=== PATIENT | female | born 1960 | race Caucasian/White ===

== ENCOUNTER → 2017-10-11 | Outpatient (CLI) | payer OTHER, MEDICAID | LOC: FIMAGING 11:59 | PROVIDERS: ATTEND Family Medicine | DX: Z12.31 Encounter for screening mammogram for malignant neoplasm of breast (principal) | CPT/HCPCS: G0202 ==

== ENCOUNTER → 2017-11-11 | Outpatient (CLI) | payer OTHER, MEDICAID | LOC: FIMAGING 14:11 | PROVIDERS: ATTEND Family Medicine | DX: R92.8 Other abnormal and inconclusive findings on diagnostic imaging of breast (principal) ==

== ENCOUNTER 2018-10-03 11:11 | Emergency (ER) | payer OTHER, MEDICAID ==
--- NOTE | 2018-10-03 11:13 | EDPHY ---
H & P Time Seen by Provider: 10/03/18 11:13 - Personal History Tetanus Vaccine Date: <10 years ago Constitutional: Initial Vital Signs Temperature (C) 36.8 C 10/03/18 11:13 Heart Rate 87 10/03/18 11:13 Respiratory Rate 18 10/03/18 11:13 Blood Pressure 148/111 H 10/03/18 11:13 O2 Sat (%) 92 10/03/18 11:13 O2 Delivery Mode Room Air Allergies/Adverse Reactions: No Known Allergies Allergy (Verified 04/27/12 12:06) Home Medications: Medication Instructions Recorded Ativan Unknown Amt 04/27/12 Clozaril Unknwn Amt 04/27/12 Risperidon Unknown Amt 04/27/12 Trilepal Unkown Amt 04/27/12 Medical Decision Making ED Course/Re-evaluation: CHIEF COMPLAINT: "I have a fetus in me" HISTORY OF PRESENT ILLNESS: This patient is a 57 year old female with history of schizophrenia arriving via EMS with concerns of an advanced . She states that every morning at 5: 00am, a fetus comes out of her, but that this scares her and she pushes it back in. Today, she called EMS for assistance and states "This time I'm biting the bullet and getting some help. Hopefully you can induce ." She is concerned due to abdominal distension and is unsure what the etiology of this is. She states "I want this out out out". The patient states believes she went through menopause about 5-6 years ago, and additionally states that she has been celibate for about 26 years. She has no other complaints today and denies any recent trauma or illness. No fever, chest pain, shortness of breath, vomiting, diarrhea, lightheadedness or other associated symptoms. REVIEW OF SYSTEMS: A comprehensive 10 system review of systems is otherwise negative aside from elements mentioned in the history of present illness and medical decision making. PHYSICAL EXAM: HR, BP, O2 Sat, RR. Temp noted General Appearance: Alert, well hydrated, appropriate, and non-toxic appearing. Head: Atraumatic without scalp tenderness or obvious injury Eyes: Pupils equal, round, reactive to light and accommodation, EOMI, no trauma , no injection. Ears: Clear bilaterally, no perforation, normal landmarks Nose: Atraumatic, no rhinorrhea, clear. Throat: There is no erythema or exudates, no lesions, normal tonsils, mucus membranes moist. Neck: Supple, 2+ carotid upstroke, nontender, no lymphadenopathy. Respiratory: No retractions, no distress, no wheezes, and no accessory muscle use. Lungs are clear to auscultation bilaterally. Cardiovascular: Regular rate and rhythm, no murmurs, rubs, or gallops. Bilateral carotid, radial, dorsalis pedis, and posterior tibial pulses intact. Good capillary refill all extremities. Gastrointestinal: Abdomen is soft, nontender, non-distended, no masses, no rebound, no guarding, no peritoneal signs. Musculoskeletal: Normal active ROM of all extremities, atraumatic. Neurological: Alert, appropriate, and interactive. The patient has normal DTRs and non-focal cranial nerves, motor, sensory, and cerebellar exam. Skin: No rashes, good turgor, no nodules on palpation. Past medical history: Schizophrenia Past surgical history: Noncontributory Family history: Noncontributory Social history: Single. Lives in [place]. DIFFERENTIAL DIAGNOSIS: Includes but not limited to , ectopic , uterine prolapse, other causes of abdominal distension. MEDICAL DECISION MAKING: Post-menopausal female with history of schizophrenia presents with concern for ongoing . I assured her this is very unlikely as she denies having had intercourse and admits to being post-menopausal for several years. Exam is largely unremarkable. Plan for US for further evaluation. 11:16 Performed US at bedside. No fetus visualized on scan. No evidence of other acute intraabdominal abnormalities. Patient states she knows for a fact there is a fetus, but I reassured her that there is none visualized. We discussed additional causes of her symptoms including possible uterine prolapse given her description of "pushing the fetus back in". She agrees that this may be the case. I recommended she follow up with gynecology for further evaluation of this. She is comfortable with this plan and will do so in the outpatient setting. Patient states she is alright to take a taxi home. Plan to discharge home in good condition. Departure - Departure Disposition: Home, Routine, Self-Care Clinical Impression: Psychosis Qualifiers: Psychosis type: unspecified psychosis type Qualified Code(s): F29 - Unspecified psychosis not due to a substance or known physiological condition Condition: Good Instructions: Additional Information Additional Instructions: We do not see evidence of at this time. You may have a uterine prolapse. Please follow up with CUSTOMER SERVICE COORDINATOR for further evaluation. We have referred you to our CUSTOMER SERVICE COORDINATOR provider client application support specialist. Referrals: Aimee Lacy MD [Medical Doctor] - As per Instructions Report Scribed for: Huber Miner Report Scribed by: Marisela Mckeon Date of Report: 10/03/18 Time of Report: 12:16
[2018-10-03 11:15] VITALS: BP 148/111
== END 2018-10-03 11:33 | disposition home or self-care (01) ==
LOC: EDUNIT#
DX: F29 Unspecified psychosis not due to a substance or known physiological condition (principal); F20.9 Schizophrenia, unspecified

== ENCOUNTER 2018-11-28 13:16 | Inpatient (IN) | payer OTHER, MEDICAID ==
[2018-11-28 13:53] LABS: PLATELET COUNT 185 10^3/uL (150-400)
[2018-11-28] MEDS ORDERED: NS 1,000 ML IV ONE (14:14)
--- NOTE | 2018-11-28 14:14 | EDPHY ---
H & P Stated Complaint: SOB Time Seen by Provider: 11/28/18 13:17 HPI/ROS: CHIEF COMPLAINT: Shortness of breath, altered mental status Limitations: Poor historian HISTORY OF PRESENT ILLNESS: 58-year-old female with schizophrenia presents with shortness of breath and altered mental status. Onset vomiting 2 days ago. Saw her primary care physician yesterday, prescribed antiemetics. Onset of shortness of breath yesterday, increased today. Her sister called this morning and felt the patient was confused. On the sister's arrival, the patient was lying on the floor, stating that she was short of breath. On EMS arrival, the patient was hypoxic and was placed on oxygen by nasal cannula. No abdominal pain, recent URI, cough or fever. No prior history of thromboembolism. REVIEW OF SYSTEMS: complete 10 point ROS reviewed and is negative except for the noted elements in the HPI Source: Patient, Family - Personal History Tetanus Vaccine Date: <10 years ago - Medical/Surgical History Hx Asthma: No Hx Chronic Respiratory Disease: No Hx Diabetes: No Hx Cardiac Disease: No Hx Renal Disease: No Hx Cirrhosis: No Hx Alcoholism: No Hx HIV/AIDS: No Hx Splenectomy or Spleen Trauma: No Other PMH: schizophrenia - Social History Smoking Status: Never smoked Alcohol Use: Sober Drug Use: None - Physical Exam Exam: General Appearance: Drowsy, answers some questions Eyes: Pupils equal and round, no conjunctival pallor or injection ENT, Mouth: Mucous membranes dry Neck: Normal inspection Respiratory: Bilateral rhonchi Cardiovascular: Regular rate and rhythm Gastrointestinal: Abdomen is distended, no apparent tenderness Neurological: Drowsy, moves all extremities, nonfocal exam Skin: Warm and dry, facial skin discoloration Extremities: Normal inspection, no swelling Psychiatric: Flat affect Constitutional: Initial Vital Signs Temperature (C) 36.8 C 11/28/18 13:16 Heart Rate 92 11/28/18 13:16 Respiratory Rate 16 11/28/18 13:16 Blood Pressure 105/77 11/28/18 13:16 O2 Sat (%) 85 L 11/28/18 13:16 O2 Delivery Mode Oxymask O2 (L/minute) 10 Allergies/Adverse Reactions: No Known Allergies Allergy (Verified 11/28/18 13:18) Home Medications: Medication Instructions Recorded LORazepam [Ativan (*)] 1 mg PO BID 04/27/12 risperiDONE [Risperdal 1mg (*)] 1 mg PO DAILY 04/27/12 OXcarbazepine [Trileptal 300mg (*)] 300 mg PO BID@,16 11/28/18 OXcarbazepine [Trileptal 300mg (*)] 600 mg PO HS 11/28/18 Ondansetron Odt [Zofran Odt 4 mg 4 mg PO Q8HRS PRN 11/28/18 (*)] cloZAPine [Clozaril (*)] 25 mg PO DAILY 11/28/18 cloZAPine [Clozaril (*)] 100 mg PO BID@09,16 11/28/18 cloZAPine [Clozaril (*)] 500 mg PO HS 11/28/18 risperiDONE [Risperdal 1mg (*)] 2 mg PO BID@,11/28/18 Medical Decision Making - Diagnostics EKG Interpretation: EKG interpreted by me reveals normal sinus rhythm, rate 87, poor R-wave progression. Interpretation: Abnormal EKG Imaging Results: Imaging Impressions Chest X-Ray 11/28/18 13:18 Impression: 1. Moderate hypoventilatory features with diffuse peribronchial thickening and left basilar subsegmental atelectasis versus a minimal infiltrate. 2. Nonspecific bowel gas pattern with air-fluid distention of the stomach, and air-filled loops of small and large bowel which are incompletely imaged. Abdomen X-Ray 11/28/18 14:31 Impression: Abnormal small and large bowel gas pattern with moderate constipation/obstipation, and features suggestive of a concurrent small bowel obstruction with an air-distended stomach. The patient would benefit from a nasogastric tube, and as clinically directed, CT imaging of the abdomen and pelvis could be considered for additional assessment. Extremity Venous Study 11/28/18 14:34 Impression: Negative. No deep venous thrombosis in the right or left lower extremity. Findings discussed with Emergency Department physician, Nati Gregory, on 2018, 15:55. Abdomen/Pelvis CT 11/28/18 15:20 Impression: Patchy bilateral pneumonia. Might this be related to aspiration from the fluid-filled dilated esophagus? 2. CT Abdomen and Pelvis without Contrast, 3:57 PM History: Abdominal pain, nausea and vomiting, distended stomach, high creatinine Technique: 128 slice volumetric data set helical CT obtained through the abdomen and pelvis without contrast . Images are reviewed on the computer workstation. Dose reduction techniques were utilized. Comparison: KUB earlier Findings: The stomach is massively distended with fluid. There is dilated small bowel, consistent with a small bowel obstruction. The small bowel is dilated up to 7 cm. There is a small amount of free fluid in the pelvis. There is no free air. There is fecal material throughout the nondistended colon. The distal ileum is not distended. Abdomen- The liver and spleen are normal in size and homogeneous. There is no biliary dilatation. The gallbladder, pancreas, and kidneys look normal. The adrenal glands and retroperitoneum look normal. There is no ascites or evidence for bowel obstruction. Pelvis: There is fecal material throughout the majority of the nondistended colon. Urinary bladder looks normal. There is no pelvic or inguinal adenopathy. Impression: 1. High-grade mid-distal ileal small bowel obstruction. This patient would benefit from an NG tube. Results discussed with Dr. Nati Gregory at 4:50 PM. General information for patients regarding this examination can be found at [email or web address]. If you have questions or comments about this report, please contact me at (hospital) or [phone] (cell). Imaging: Discussed imaging studies w/ at home independent call center agent Radiologist, I viewed and interpreted images myself ED Course/Re-evaluation: This patient presents with a 2 day history of shortness of breath and vomiting. On exam, she appears dehydrated and is lethargic and hypoxic. Chest x-ray is a very poor inspiratory film, but likely has a left lower lobe infiltrate. Clinical presentation suggests pneumonia, initial lactate is normal. Blood cultures were drawn and Rocephin and Zithromax IV given. The patient also has hyponatremia and acute renal failure, likely secondary to dehydration, given a 2 -3 day history of vomiting. IV normal saline 1 L given. D-dimer is elevated, CTA is contraindicated because of elevated creatinine. Bilateral lower extremity ultrasounds ordered and revealed no evidence of DVT. The hospitalist service was consulted for admission. Abdominal x-ray obtained and reveals dilated loops of small bowel. CT abdomen pelvis obtained and reveals a high- grade bowel obstruction. Dr. Sade Joseph was consulted and will see the patient. At this point, the patient was already admitted to a floor bed. I contacted Dr. Raycroft and an NGT tube has already been placed. Concern for aspiration pneumonia, given small-bowel obstruction. Will likely need to change antibiotic regimen. Differential Diagnosis: Differential diagnosis includes though it is not limited to pneumonia, pneumothorax, pulmonary embolism, aortic dissection, pericarditis, acute coronary syndrome. - Data Points Laboratory Results: Laboratory Results 11/28/18 13:20 11/28/18 13:20 11/28/18 11/28/18 11/28/18 14:00 13:20 13:20 WBC RBC Hgb Hct MCV MCH MCHC RDW Plt Count MPV Neut % (Auto) Lymph % (Auto) Imperial % (Auto) Eos % (Auto) Baso % (Auto) Nucleat RBC Rel Count Absolute Neuts (auto) Absolute Lymphs (auto) Absolute Monos (auto) Absolute Eos (auto) Absolute Basos (auto) Absolute Nucleated RBC Immature Gran % Immature Gran # D-Dimer 3.01 ug/mLFEU H ug/mLFEU (0.00-0.50) VBG Lactic Acid 1.4 mmol/L mmol/L (0.7-2.1) Sodium Potassium Chloride Carbon Dioxide Anion Gap BUN Creatinine Estimated GFR Glucose Calcium Troponin I 0.015 ng/mL ng/mL (0.000-0.034) NT-Pro-B Natriuret Pep 374 pg/mL H pg/mL (0-125) Ethyl Alcohol < 10 mg/dL mg/dL (0-10) 11/28/18 11/28/18 13:20 13:20 WBC 15.19 10^3/uL H 10^3/uL (3.80-9.50) RBC 4.59 10^6/uL 10^6/uL (4.18-5.33) Hgb 14.0 g/dL g/dL (12.6-16.3) Hct 40.4 % % (38.0-47.0) MCV 88.0 fL fL (81.5-99.8) MCH 30.5 pg pg (27.9-34.1) MCHC 34.7 g/dL g/dL (32.4-36.7) RDW 13.4 % % (11.5-15.2) Plt Count 185 10^3/uL 10^3/uL (150-400) MPV 10.6 fL fL (8.7-11.7) Neut % (Auto) 89.2 % H % (39.3-74.2) Lymph % (Auto) 4.7 % L % (15.0-45.0) Imperial % (Auto) 5.5 % % (4.5-13.0) Eos % (Auto) 0.0 % L % (0.6-7.6) Baso % (Auto) 0.1 % L % (0.3-1.7) Nucleat RBC Rel Count 0.0 % % (0.0-0.2) Absolute Neuts (auto) 13.55 10^3/uL H 10^3/uL (1.70-6.50) Absolute Lymphs (auto) 0.72 10^3/uL L 10^3/uL (1.00-3.00) Absolute Monos (auto) 0.83 10^3/uL H 10^3/uL (0.30-0.80) Absolute Eos (auto) 0.00 10^3/uL L 10^3/uL (0.03-0.40) Absolute Basos (auto) 0.02 10^3/uL 10^3/uL (0.02-0.10) Absolute Nucleated RBC 0.00 10^3/uL 10^3/uL (0-0.01) Immature Gran % 0.5 % % (0.0-1.1) Immature Gran # 0.07 10^3/uL 10^3/uL (0.00-0.10) D-Dimer VBG Lactic Acid Sodium 125 mEq/L L mEq/L (135-145) Potassium 4.5 mEq/L mEq/L (3.5-5.2) Chloride 79 mEq/L L mEq/L (97-110) Carbon Dioxide 27 mEq/l mEq/l (22-31) Anion Gap 19 mEq/L H mEq/L (6-14) BUN 73 mg/dL H mg/dL (7-23) Creatinine 4.2 mg/dL H mg/dL (0.6-1.0) Estimated GFR 11 Glucose 166 mg/dL H mg/dL (70-100) Calcium 8.8 mg/dL mg/dL (8.5-10.4) Troponin I NT-Pro-B Natriuret Pep Ethyl Alcohol Microbiology Results: MICROBIOLOGY 11/28/18 14:00 Nasal, Sinus - Swab Respiratory Panel (PCR) - Final No Organism Detected By Pcr Medications Given: Clozapine (Clozaril) 100 mg PO BID@09,16 [facility] Stop: 05/27/19 15:59 Last Admin: 11/28/18 18:08 Dose: 100 mg Clozapine (Clozaril) 400 mg PO HS MELVIN Stop: 05/27/19 20:59 Last Admin: 11/28/18 21:03 Dose: 400 mg Heparin Sodium (Porcine) (Heparin Sc Injection) 5,000 unit SC Q8 MELVIN Stop: 05/27/19 21:59 Last Admin: 11/28/18 21:04 Dose: 5,000 unit Sodium Chloride (Ns) 1,000 mls @ 125 mls/hr IV CONT [facility] Stop: 05/27/19 15:29 Last Admin: 11/28/18 16:49 Dose: 1,000 mls Ampicillin Sodium/Sulbactam (Sodium 1.5 gm/ Sodium Chloride) 50 mls @ 200 mls/ hr IV Q12H MELVIN PRN Reason: Protocol Stop: 12/28/18 19:59 Last Admin: 11/28/18 21:00 Dose: 50 mls Lorazepam (Ativan) 1 mg PO BID [facility] Stop: 05/27/19 20:59 Last Admin: 11/28/18 21:04 Dose: 1 mg Ondansetron HCl (Zofran) 4 mg IVP Q4HRS PRN PRN Reason: Nausea/Vomiting, Can't Take PO Stop: 05/27/19 16:54 Last Admin: 11/28/18 16:59 Dose: 4 mg Oxcarbazepine (Trileptal) 300 mg PO BID@0900,1600,2100 [facility] Stop: 05/27/19 20:59 Last Admin: 11/28/18 21:04 Dose: 300 mg Risperidone (Risperdal) 2 mg PO BID@16,21 [facility] Stop: 05/27/19 15:59 Last Admin: 11/28/18 21:04 Dose: 2 mg Discontinued Medications Sodium Chloride (Ns) 1,000 mls @ 0 mls/hr IV ONCE ONE; Wide Open PRN Reason: Protocol Stop: 11/28/18 14:15 Last Admin: 11/28/18 14:23 Dose: 1,000 mls Azithromycin 500 mg/ Sodium (Chloride) 255 mls @ 255 mls/hr IV EDNOW ONE PRN Reason: Protocol Stop: 11/28/18 15:32 Last Admin: 11/28/18 15:36 Dose: 255 mls Ceftriaxone Sodium/Dextrose (Rocephin 1 Gm (Premix)) 50 mls @ 100 mls/hr IV EDNOW ONE PRN Reason: Protocol Stop: 11/28/18 15:02 Last Admin: 11/28/18 14:40 Dose: 50 mls Oxcarbazepine (Trileptal) 300 mg PO BID@09,16 MELVIN Stop: 05/27/19 15:59 Last Admin: 11/28/18 18:08 Dose: 300 mg Departure - Departure Disposition: [facility] Inpatient Acute Clinical Impression: Small bowel obstruction Pneumonia Qualifiers: Pneumonia type: due to unspecified organism Laterality: bilateral Lung location : unspecified part of lung Qualified Code(s): J18.9 - Pneumonia, unspecified organism Acute renal failure Qualifiers: Acute renal failure type: unspecified Qualified Code(s): N17.9 - Acute kidney failure, unspecified Condition: Serious
[2018-11-28] MEDS ORDERED: AZITHROMYCIN IV 500 MG in NS 250 ML IV ONE (14:33)
--- NOTE | 2018-11-28 15:29 | PDGENHP ---
History and Physical - Chief Complaint confusion, n/v - History of Present Illness 58yo F with schizophrenia presents to ED with several days of nausea and vomiting who is now confused. Patient very somnolent, unable to obtain any significant history. Sister at bedside who provides details. Patient reported nausea and vomiting to sister starting Tuesday morning. She was also having chills and sweats. Symptoms continued through weekend and patient went to PCP yesterday who prescribed anti-emetics. She was not having any diarrhea. Last BM this morning. Sister reports that she did complain of some shortness of breath yesterday. Sister went to check on patient this AM and found her confused, which was unusual as her schizophrenia is typically well controlled. She has had no medication changes recently. In the ED, she was noted to have SpO2 of 85% on room air. This only mildly improved on 3L and ultimately she was increased to 6L oxymask with O2 sats>90%. She also had a Na of 125, Cr 4.2 (previously 1.0). She is being admitted to the step down unit for further evaluation and management. History Information - Allergies/Home Medication List Allergies/Adverse Reactions: No Known Allergies Allergy (Verified 11/28/18 13:18) Home Medications: LORazepam [Ativan (*)] 1 mg PO BID 04/27/12 [Last Taken Unknown] risperiDONE [Risperdal 1mg (*)] 1 mg PO DAILY 04/27/12 [Last Taken Unknown] OXcarbazepine [Trileptal 300mg (*)] 300 mg PO BID@,11/28/18 [Last Taken Unknown] OXcarbazepine [Trileptal 300mg (*)] 600 mg PO HS 11/28/18 [Last Taken Unknown] Ondansetron Odt [Zofran Odt 4 mg (*)] 4 mg PO Q8HRS PRN 11/28/18 [Last Taken Unknown] cloZAPine [Clozaril (*)] 25 mg PO DAILY 11/28/18 [Last Taken Unknown] cloZAPine [Clozaril (*)] 100 mg PO BID@,11/28/18 [Last Taken Unknown] cloZAPine [Clozaril (*)] 500 mg PO HS 11/28/18 [Last Taken Unknown] risperiDONE [Risperdal 1mg (*)] 2 mg PO BID@,21 11/28/18 [Last Taken Unknown] I have personally reviewed and updated: family history, medical history, social history, surgical history - Past Medical History Additional medical history: schizophrenia - Surgical History Reports: no pertinent surgical hx Additional surgical history: no abdominal surgeries - Family History Positive for: non-pertinent - Social History Smoking Status: Never smoked Alcohol Use: Sober Drug Use: None Additional social history: Lives alone, typically independent in ADLs. Sister ( Rody Holcomb) checks in on her routinely. Review of Systems Review of Systems: ROS: 10pt was reviewed & negative except for what was stated in HPI & below Physical Exam Physical Exam: Temp Pulse Resp BP Pulse Ox 36.8 C 74 16 112/84 H 95 11/28/18 13:16 11/28/18 14:39 11/28/18 14:41 11/28/18 14:39 11/28/18 14:41 O2 (L/minute) 10 Constitutional: no apparent distress, other (somnolent) Eyes: PERRL, anicteric sclera, EOMI Ears, Nose, Mouth, Throat: dry mucous membranes Cardiovascular: regular rate and rhythym, no murmur, rub, or gallop, No edema Respiratory: reduced air movement, rhonchi, No expiratory wheeze, No inspiratory crackles Gastrointestinal: distension, other (absent bowel sounds), No tenderness Genitourinary: no bladder fullness, no bladder tenderness Skin: other (hyperpigmented face/neck) Musculoskeletal: full muscle strength, no muscle tenderness, normal joint ROM, no joint effusions Neurologic: other (alert, answers questions appropriately but then falls asleep) Psychiatric: encephalopathic Lab Data & Imaging Review 11/28/18 13:20 11/28/18 13:20 WBC 15.19 10^3/uL (3.80-9.50) H 11/28/18 13:20 RBC 4.59 10^6/uL (4.18-5.33) 11/28/18 13:20 Hgb 14.0 g/dL (12.6-16.3) 11/28/18 13:20 Hct 40.4 % (38.0-47.0) 11/28/18 13:20 MCV 88.0 fL (81.5-99.8) 11/28/18 13:20 MCH 30.5 pg (27.9-34.1) 11/28/18 13:20 MCHC 34.7 g/dL (32.4-36.7) 11/28/18 13:20 RDW 13.4 % (11.5-15.2) 11/28/18 13:20 Plt Count 185 10^3/uL (150-400) 11/28/18 13:20 MPV 10.6 fL (8.7-11.7) 11/28/18 13:20 Neut % (Auto) 89.2 % (39.3-74.2) H 11/28/18 13:20 Lymph % (Auto) 4.7 % (15.0-45.0) L 11/28/18 13:20 Walsh % (Auto) 5.5 % (4.5-13.0) 11/28/18 13:20 Eos % (Auto) 0.0 % (0.6-7.6) L 11/28/18 13:20 Baso % (Auto) 0.1 % (0.3-1.7) L 11/28/18 13:20 Nucleat RBC Rel Count 0.0 % (0.0-0.2) 11/28/18 13:20 Absolute Neuts (auto) 13.55 10^3/uL (1.70-6.50) H 11/28/18 13:20 Absolute Lymphs (auto) 0.72 10^3/uL (1.00-3.00) L 11/28/18 13:20 Absolute Monos (auto) 0.83 10^3/uL (0.30-0.80) H 11/28/18 13:20 Absolute Eos (auto) 0.00 10^3/uL (0.03-0.40) L 11/28/18 13:20 Absolute Basos (auto) 0.02 10^3/uL (0.02-0.10) 11/28/18 13:20 Absolute Nucleated RBC 0.00 10^3/uL (0-0.01) 11/28/18 13:20 Immature Gran % 0.5 % (0.0-1.1) 11/28/18 13:20 Immature Gran # 0.07 10^3/uL (0.00-0.10) 11/28/18 13:20 D-Dimer 3.01 ug/mLFEU (0.00-0.50) H 11/28/18 13:20 VBG Lactic Acid 1.4 mmol/L (0.7-2.1) 11/28/18 14:00 Sodium 125 mEq/L (135-145) L 11/28/18 13:20 Potassium 4.5 mEq/L (3.5-5.2) 11/28/18 13:20 Chloride 79 mEq/L (97-110) L 11/28/18 13:20 Carbon Dioxide 27 mEq/l (22-31) 11/28/18 13:20 Anion Gap 19 mEq/L (6-14) H 11/28/18 13:20 BUN 73 mg/dL (7-23) H 11/28/18 13:20 Creatinine 4.2 mg/dL (0.6-1.0) H 11/28/18 13:20 Estimated GFR 11 11/28/18 13:20 Glucose 166 mg/dL (70-100) H 11/28/18 13:20 Calcium 8.8 mg/dL (8.5-10.4) 11/28/18 13:20 Troponin I 0.015 ng/mL (0.000-0.034) 11/28/18 13:20 NT-Pro-B Natriuret Pep 374 pg/mL (0-125) H 11/28/18 13:20 Ethyl Alcohol < 10 mg/dL (0-10) 11/28/18 13:20 Interpretation: CXR: low lung volumes c/w poor inspiration, no effusion, atelectasis in left lower lobe, normal heart size. AXR: abnormal gas pattern with features suggestive of small bowel obstruction EKG additional interpertation: ECG: NSR, biatrial enlargement, normal axis, q wave in V3 (? lead placement), no acute ST-T segment changes Assessment & Plan Assessment: 58yo F with schizophrenia presents to ED with several days of nausea and vomiting found to have small bowel obstruction in addition to respiratory and renal failure. Plan: 1. Acute small bowel obstruction: Non-peritoneal abdomen. Possibly precipitated by recent gastroenteritis. - NG tube, NPO, IVF - CT abd/pelvis w/out contrast - Consult surgery if not improving with conservative management 2. Acute hypoxemic respiratory failure: Unclear etiology, possibly atelectasis from abdominal distention. - s/p CTX and azithromycin in ED, will hold on further abx - ABG pending - CT chest w/out contrast to evaluate lung parenchyma 3. Acute kidney injury: Cr 4.2, previously 1.0. Suspect prerenal/hypovolemic. - Send urine studies, eval for hydronephrosis with CT - IVF, avoid nephrotoxins 4. Hyponatremia: As above, suspect hypovolemia. At risk for SIADH given psych meds but she has been on these chronically. - Checking urine lytes - Serial Na monitoring, goal no higher than 131 by tomorrow afternoon 5. Acute metabolic encephalopathy: Multifactorial from hypoxia, uremia, low Na. - Avoid centrally acting meds, correcting metabolic derangements as above 6. Nausea, vomiting, dehydration: Likely gastroenteritis. - GI PCR ordered 7. Elevated d-dimer: - Checking bilateral leg US - Unable to obtain CTA chest, consider V/Q scan 8. Schizophrenia: Rather high functioning per sister. Followed by Dr Cole Goodwin - Continue home meds once med rec complete, monitor counts on clozaril 9. Tobacco use: 40-50pyh. 10. H/o argyria: Chronic blue-munoz hyperpigmentation of neck/face. VTE ppx: SQH Code: full Diet: NPO Proxy: sister, Rody Holcomb, # in chart Dispo: Admit as inpatient to step down given severity of multiple organ dysfunction.
[2018-11-28] MEDS ORDERED: OXcarbazepine 300 MG TAB PO SCH ×2 (16:00→21:00)
[2018-11-28] MEDS ORDERED: ONDANSETRON 4 MG/2 ML VIAL ONE (16:40)
[2018-11-28] MEDS: NS 1,000 ML IV SCH (16:49)
--- NOTE | 2018-11-28 16:50 | PDMN ---
Medical Necessity Medical necessity: [facility] [place] M210 Intestinal Obstruction, 2 days: 58 yo w/ several days n/v presents with new onset confusion today. Assessment reveals SBO in addition to resp and renal failure with sats 85% on ra and creat 4.2. NPO, NGT , IVF, IV antibx, O2, surgical consult. Admit to IP status, will require>48hrs for treatment. Hx schizophrenia well controlled on medications.
[2018-11-28] MEDS: ONDANSETRON 4 MG/2 ML VIAL IVP PRN (16:59)
[2018-11-28] MEDS ORDERED: AMPICILLIN/SULBACTAM 3 GM in NS 100 ML IV SCH (18:00)
[2018-11-28] MEDS: cloZAPine 100 MG TAB PO SCH ×2 (18:08→21:03)
[2018-11-28] MEDS: risperiDONE 2 MG TAB PO SCH ×2 (18:08→21:04)
[2018-11-28] MEDS: AMPICILLIN/SULBACTAM 1.5 GM in NS 50 ML IV SCH (21:00)
--- NOTE | 2018-11-28 21:00 | CPEKG ---
Test Reason : OPEN Blood Pressure : / mmHG Vent. Rate : 087 BPM Atrial Rate : 087 BPM P-R Int : 167 ms QRS Dur : 104 ms QT Int : 396 ms P-R-T Axes : 059 038 053 degrees QTc Int : 477 ms Sinus rhythm Biatrial enlargement Consider anterior infarct Minimal ST elevation, inferior leads Confirmed by Nati Calloway ([id number]) on 11/28/2018 9:00:06 PM Referred By: NATI CALLOWAY Confirmed By:Nati Calloway
[2018-11-28] MEDS: HEPARIN 5,000 UNIT/0.5 ML INJ SC SCH (21:04)
[2018-11-28] MEDS: LORazepam 1 MG TAB PO SCH (21:04)
[2018-11-28] MEDS: OXcarbazepine 300 MG TAB PO SCH (21:04)
[2018-11-29] MEDS: NS 1,000 ML IV SCH ×3 (01:01→20:37)
--- NOTE | 2018-11-29 04:02 | GCON ---
[f rep st] CONSULTATION DATE OF CONSULTATION: 11/28/2018 CHIEF COMPLAINT: Small bowel obstruction. HISTORY OF PRESENT ILLNESS: The patient is a 58-year-old woman with a history of schizophrenia who h as had several days of nausea and vomiting. She started having emesis on Tuesday. She is continuin g to pass flatus. She had a BM within the past 24 hours. She also had shortness of breath. Her sis ter went to check on her and found her confused. She had a low oxygen saturation on room air. She h ad a CT scan performed of her chest and abdomen. The chest CT showed patchy bilateral pneumonia. Sh pato also has a high-grade mid distal ileal small bowel obstruction. She has never had abdominal surger y before. PAST MEDICAL HISTORY: Schizophrenia. She has not been hospitalized since 2005. She is very depende nt on her meds and notes when she is getting psychotic. PAST SURGICAL HISTORY: No abdominal surgeries. SOCIAL HISTORY: She does not use tobacco. She is independent in her ADLs. REVIEW OF SYSTEMS: Full 10-point review of systems is difficult to obtain fully. She does endorse p assing flatus multiple times per day, and her last bowel movement was within 24 hours. PHYSICAL EXAMINATION: VITAL SIGNS: 36.8, 78, 115/88, 93% on 10 L OxyMask. GENERAL: Pleasant, sitt ing in bed, sometimes closes eyes throughout exam. Sister at bedside and very attentive. HEENT: Bl ue faces. Pupils equal and round. LUNGS: Shallow breathing without increased effort. CARDIAC: Re gular rate. ABDOMEN: Bowel sounds are present, although hypoactive. She is distended but soft. Th ere is approximately 1 L of yellow fluid in her NG. No obvious scars. MUSCULOSKELETAL: Normal nail s. PSYCH: Calm. NEURO: Grossly intact. DATA: I personally reviewed the results of her CT scan, and she has bilateral lower lobe infiltrates . On her abdomen, she has an extremely fluid-filled stomach as well as throughout her small bowel. Her distal bowel is decompressed. I do not see edema or mesenteric swirling. Her white count is 15. 19, and her neutrophils are 89.2. D-dimer 3.01. Chemistry is notable for a sodium of 1.25, and her creatinine is 4.2. Her laboratory work from January of 2018, showed a normal creatinine and a normal s odium. Her white count at that time was also normal. IMPRESSION AND PLAN: The patient is a 58-year-old woman with known schizophrenia, who is admitted wi th acute renal insufficiency, hyponatremia, bilateral lower lobe pneumonia, and small bowel obstructi on. She does not have any peritoneal signs. She is currently undergoing decompression with the naso gastric tube. Due to her renal function and sodium level, I think it would be prudent to watch her o vernight with nasogastric decompression, especially since she is passing flatus and had a recent maryse l movement. I am hoping that the small bowel obstruction will resolve. There is a chance that she c ould need operative intervention. 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 I did discuss with her and her sister that although we would be giving her by-mouth medications, we are unsure of how much will be absorbed systemically. I recommend accu rate ins and outs due to her creatinine. I will continue to follow. /[id number]/MODL
[2018-11-29] MEDS: HEPARIN 5,000 UNIT/0.5 ML INJ SC SCH ×3 (05:43→21:33)
[2018-11-29 06:37] LABS: PLATELET COUNT 149 10^3/uL (150-400)
--- NOTE | 2018-11-29 08:35 | SOAPPROG ---
SOAP Progress Note Assessment/Plan: Assessment: 58 y with schizophrenia admitted for aspiration pneumonia and sbo over 2 L out of NG tube. Passing flatus No history of surgery, no hernias. Hope this will resolve with decompression Unsure if related to her medications for schizophrenia WBC much improved today, Cr improving Continue NG decompression Popsicle 1 per 12 hours for comfort hard candy or cough drops for comfort Will follow S: Sore throat O: Sitting in bed Pleasant and well nourished BS present (hypoactive). Much softer today. Not tender Bilious fluid in NG Plan: 11/29/18 08:33 58 Objective: Vital Signs Temp Pulse Resp BP Pulse Ox 36.8 C 85 16 105/66 97 11/29/18 08:00 11/29/18 08:00 11/29/18 08:00 11/29/18 08:00 11/29/18 08:00 Laboratory Results 11/29/18 06:06 11/29/18 06:06 11/28/18 11/29/18 11/30/18 05:59 05:59 05:59 Intake Total 2080 Output Total 3050 Balance -970 ICD10 Worksheet Patient Problems: Problems Problem Status Onset Acute renal failure Acute Pneumonia Acute Small bowel obstruction Acute Drug overdose - suicide Active Schizoaffective disorder Active
[2018-11-29] MEDS: AMPICILLIN/SULBACTAM 1.5 GM in NS 50 ML IV SCH ×2 (09:21→20:53)
[2018-11-29] MEDS: LORazepam 1 MG TAB PO SCH (09:27)
[2018-11-29] MEDS: cloZAPine 25 MG TAB PO SCH (09:27)
[2018-11-29] MEDS: risperiDONE 1 MG TAB PO SCH (09:28)
[2018-11-29] MEDS: OXcarbazepine 300 MG TAB PO SCH ×3 (09:28→20:17)
[2018-11-29] MEDS: cloZAPine 100 MG TAB PO SCH ×3 (09:28→20:18)
--- NOTE | 2018-11-29 09:35 | ASMTCASEMG ---
Living Arrangements What is your living Answers: Alone arrangement? Who do you live with? Type Of Residence What kind of residence do Answers: Apartment you live in? Type of Residence Facility Name Notes: Patient has hx of schizophrenia, lives alone, fairly independent. Patient's sister Rody checks on her regularly and will serve as proxy for the patient. Paperwork in the front of the chart. Discharge Plan Comments Coordination Status Comments Notes: Patient is a 58yo single female with hx of schizophrenia who presents to the ED with several days of nausea and vomiting. Patient has been admitted for a small bowel obstruction, hypoxemic respiratory failure, acute kidney injury, hyponatremia, acute metabolic encephalopathy, nausea, vomiting, dehydration. Patient sees Dr. Goodwin for her schizophrenia and is high functioning. OT/PT have been ordered for the patient. D/C plan TBD.CM will follow. Date Signed: 11/29/2018 09:35 AM Electronically Signed By:Julia Tiwari LCSW
--- NOTE | 2018-11-29 10:21 | HOSPPROG ---
Hospitalist Progress Note Assessment/Plan: DIAGNOSES: * Small-bowel obstruction uncertain etiology, high-grade requiring NG decompression * Pneumonia, community-acquired, question if possibly related to aspiration due to her obstruction; patchy bilateral diffuse infiltrates, alveolar * Acute renal failure likely dehydration from above, improving * Acute on chronic hypoxemic respiratory failure with tobacco use and COPD * Schizophrenia with significant ongoing psychosis/delusions - unclear to me what her baseline is but doubt she has been getting medication absorbed at home with her bowel obstruction and may be an ongoing problem here. She is currently calm and working well with staff * Hyponatremia, hypovolemic * Argyria PLANS: * Continue NG suction and IV hydration * Allow small volume oral fluid intake for now * Encourage ambulation and barger * DVT prophylaxis * Continue current treatment for pneumonia and COPD * Follow her schizophrenia very closely, will review her medicines may need to consider IV medications Seen by me on hospitals rounds and multidisciplinary rounds today Reviewed in detail with Dr. 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 I reviewed chest CT scan images which showed scattered bilateral patchy alveolar infiltrates I reviewed abdominal CT images which show high-grade distal small-bowel obstruction - Objective: Vital Signs Temp Pulse Resp BP Pulse Ox 36.8 C 85 16 105/66 97 11/29/18 08:00 11/29/18 08:00 11/29/18 08:00 11/29/18 08:00 11/29/18 08:00 Laboratory Results 11/29/18 06:06 11/29/18 06:06 11/28/18 11/29/18 11/30/18 06:59 06:59 06:59 Intake Total 2080 Output Total 3050 600 Balance -970 -600 - Time Spent With Patient Time Spent with Patient: greater than 35 minutes Time Spent with Patient: Greater than 35 minutes spent on this patients care, greater than 50% of time spent counseling, educating, and coordinating care regarding the above mentioned plan. ICD10 Worksheet Patient Problems: Problems Problem Status Onset Acute renal failure Acute Pneumonia Acute Small bowel obstruction Acute Drug overdose - suicide Active Schizoaffective disorder Active
--- NOTE | 2018-11-29 12:38 | GCON ---
[f rep st] CONSULTATION [facility] CONSULTATION. REFERRING PHYSICIAN: John Huynh MD I was asked to see patient by Dr. John Huynh. REASON FOR ADMISSION: Small-bowel obstruction. HISTORY: The patient is a very pleasant 58-year-old white female with extensive past medical history including schizophrenia and tobacco abuse. She was brought in to the emergency room after complaint s of abdominal pain. This was associated with nausea and vomiting. Upon presentation, she was found to have small-bowel obstruction. Surgery was subsequently consulted but deferred surgery at this [facility]. She was somewhat hypoxemic at the time of presentation. She was subsequently admitted to the in tensive care unit. Currently, she is resting comfortably, sitting up in a chair. She states that he r abdominal pain is somewhat improved. She states she is quite hungry as well as thirsty. There is no chest pain, pleuritic-type chest pain or angina equivalent. Her breathlessness has improved with supplemental oxygen. PAST MEDICAL HISTORY: Significant for schizophrenia and possible chronic obstructive pulmonary disea se. PAST SURGICAL HISTORY: None. ALLERGIES: No known allergies to medications. SOCIAL HISTORY: She is a lifelong smoker since age 12. She denies any alcohol use for several years . 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 However, her sister is attentive and has g ood family support. REVIEW OF SYSTEMS: 10-point review of systems performed and negative except for what is listed in th e HPI. PHYSICAL EXAM: VITAL SIGNS: Blood pressure 105/66, pulse 85, respirations 16, temperature 36.8, oxy gen saturation 97% on 6 L. GENERAL: She is a thin, somewhat malnourished 58-year-old white female w ho is resting comfortably on supplemental oxygen. HEENT: She has significant hyperpigmented face an d neck. Throat shows no erythema or tonsillar hypertrophy. NECK: Supple. There is no cervical jairo nopathy. HEART: Regular rate and rhythm without murmurs, rubs, gallops. LUNGS: Show prolongation expiratory phase but there is no wheeze. ABDOMEN: Distended, soft, tender. Bowel sounds are dimini shed. EXTREMITIES: No clubbing, cyanosis, or edema. LABORATORIES: White count 5.8, hemoglobin 12, hematocrit 36, platelet count is 149. Sodium 130, pot assium 3.8, chloride 93, CO2 is 29, BUN is 76, creatinine 3.0, glucose is 84. IMPRESSION: 1. Small-bowel obstruction. 2. Hypoxemia, likely a combination of abdominal contents pushing up against the lungs. However, giv en her lifelong smoking history must take into consideration the likelihood of emphysema. 3. Acute renal failure appears to be prerenal. 4. Schizophrenia. RECOMMENDATIONS: 1. Continue adequate pain control. 2. Continue NG tube suction. 3. DVT and PE prophylaxis. 4. Stress ulcer prophylaxis. 5. Continue supplemental oxygen, wean as tolerated. 6. Agree with frequent nebulized treatment with both albuterol and Atrovent. 7. Would recommend pulmonary function testing as an outpatient. Thank you very much for allowing me to participate in the care of this interesting patient. Will fol low along with you. /[id number]/MODL
[2018-11-29] MEDS: LORazepam 2 MG/ML INJ IVP SCH ×3 (13:23→23:14)
[2018-11-29] MEDS: IPRATROPIUM/ALBUTEROL 3 ML DEYVIAL IH SCH ×3 (13:38→21:13)
[2018-11-29] MEDS: risperiDONE 2 MG TAB PO SCH ×2 (16:16→20:17)
[2018-11-30] MEDS: IPRATROPIUM/ALBUTEROL 3 ML DEYVIAL IH SCH ×4 (05:16→20:01)
[2018-11-30] MEDS: LORazepam 2 MG/ML INJ IVP SCH ×3 (06:13→16:38)
[2018-11-30] MEDS: HEPARIN 5,000 UNIT/0.5 ML INJ SC SCH ×3 (06:13→21:14)
[2018-11-30] MEDS: NS 1,000 ML IV SCH (07:41)
[2018-11-30] MEDS: cloZAPine 100 MG TAB PO SCH ×3 (08:23→21:09)
[2018-11-30] MEDS: OXcarbazepine 300 MG TAB PO SCH ×3 (08:23→21:09)
[2018-11-30] MEDS: cloZAPine 25 MG TAB PO SCH (08:23)
[2018-11-30] MEDS: AMPICILLIN/SULBACTAM 1.5 GM in NS 50 ML IV SCH ×2 (08:23→20:39)
[2018-11-30] MEDS: risperiDONE 1 MG TAB PO SCH (08:23)
--- NOTE | 2018-11-30 09:33 | HOSPPROG ---
Hospitalist Progress Note Assessment/Plan: DIAGNOSES: * Small-bowel obstruction uncertain etiology, high-grade requiring NG decompression * Pneumonia, community-acquired, question if possibly related to aspiration due to her obstruction; patchy bilateral diffuse infiltrates, alveolar * Acute renal failure likely dehydration from above, improving * Acute on chronic hypoxemic respiratory failure with tobacco use and COPD * Schizophrenia with significant ongoing psychosis/delusions - unclear to me what her baseline is but doubt she has been getting medication absorbed at home with her bowel obstruction and may be an ongoing problem here. She is currently calm and working well with staff * Hyponatremia, hypovolemic * Argyria PLANS: * Continue NG suction and IV hydration * Allow small volume oral fluid intake for now * Encourage ambulation and barger * DVT prophylaxis * Continue current treatment for pneumonia and COPD * Follow her schizophrenia very closely, will review her medicines may need to consider IV medications * Some scheduled IV Ativan at this time for prevention of seizures as this is medicine that she takes twice daily at home in addition to taking try level at home, neither which she would absorb reliably taken orally at this time * Continue physical occupational therapy * Will review with Dr. 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: Sinus Exam: alert, calm, very attentive and conversant, know she is in hospital and has some understanding of why; however she is very delusional, no tremor skin warm dry Obvious abnormal pigmentation of face due to argyria resps mildly labored lungs coarse BSs heart regular abd soft distended and tender, some bowel sounds present limbs warm, no edema iv site ok Lab data: Microbiology data: Blood cultures with no growth today Respiratory pathogen panel normal I have ordered abdominal x-rays for today but they are not yet done, will review when they are available - Objective: Vital Signs Temp Pulse Resp BP Pulse Ox 36.8 C 82 17 106/71 98 11/30/18 00:00 11/30/18 07:35 11/30/18 07:35 11/30/18 07:35 11/30/18 07:35 Laboratory Results 11/29/18 06:06 11/29/18 06:06 11/29/18 11/30/18 12/01/18 06:59 06:59 06:59 Intake Total 1330 9518 Output Total 1355 4445 500 [facility]970 -1699 -500 - Time Spent With Patient Time Spent with Patient: greater than 35 minutes Time Spent with Patient: Greater than 35 minutes spent on this patients care, greater than 50% of time spent counseling, educating, and coordinating care regarding the above mentioned plan. ICD10 Worksheet Patient Problems: Problems Problem Status Onset Acute renal failure Acute Pneumonia Acute Small bowel obstruction Acute Drug overdose - suicide Active Schizoaffective disorder Active
--- NOTE | 2018-11-30 09:41 | HOSPPROG ---
Hospitalist Progress Note Assessment/Plan: DIAGNOSES: * Small-bowel obstruction uncertain etiology, high-grade requiring NG decompression * Pneumonia, community-acquired, question if possibly related to aspiration due to her obstruction; patchy bilateral diffuse infiltrates, alveolar * Acute renal failure likely dehydration from above, improving * Acute on chronic hypoxemic respiratory failure with tobacco use and COPD * Schizophrenia with significant ongoing psychosis/delusions - unclear to me what her baseline is but doubt she has been getting medication absorbed at home with her bowel obstruction and may be an ongoing problem here. She is currently calm and working well with staff * Hyponatremia, hypovolemic * Argyria PLANS: * I have ordered abdominal x-rays to be done today those are still pending * Continue NG suction and IV hydration * Allow small volume oral fluid intake for now * Encourage ambulation and barger * DVT prophylaxis * Continue current treatment for pneumonia and COPD * Follow her schizophrenia very closely, will review her medicines may need to consider IV medications * Some scheduled IV Ativan at this time for prevention of seizures as this is medicine that she takes twice daily at home in addition to taking try level at home, neither which she would absorb reliably taken orally at this time * Continue physical occupational therapy * Will review with Dr. 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: Sinus Exam: alert, calm, very attentive and conversant, know she is in hospital and has some understanding of why; however she is very delusional, no tremor skin warm dry Obvious abnormal pigmentation of face due to argyria resps mildly labored lungs coarse BSs heart regular abd soft distended and tender, some bowel sounds present limbs warm, no edema iv site ok Lab data: Microbiology data: Blood cultures with no growth today Respiratory pathogen panel normal I have ordered abdominal x-rays for today but they are not yet done, will review when they are available - Objective: Vital Signs Temp Pulse Resp BP Pulse Ox 36.8 C 82 17 106/71 98 11/30/18 00:00 11/30/18 07:35 11/30/18 07:35 11/30/18 07:35 11/30/18 07:35 Laboratory Results 11/29/18 06:06 11/29/18 06:06 11/29/18 11/30/18 12/01/18 06:59 06:59 06:59 Intake Total 7859 2758 Output Total 0428 4445 500 Balance -970 -1699 -500 - Time Spent With Patient Time Spent with Patient: greater than 35 minutes Time Spent with Patient: Greater than 35 minutes spent on this patients care, greater than 50% of time spent counseling, educating, and coordinating care regarding the above mentioned plan. ICD10 Worksheet Patient Problems: Problems Problem Status Onset Acute renal failure Acute Pneumonia Acute Small bowel obstruction Acute Drug overdose - suicide Active Schizoaffective disorder Active
--- NOTE | 2018-11-30 09:59 | PDINTPN ---
[employer] Progress Note Assessment/Plan: Assessment/plan: * Small-bowel obstruction * Schizophrenia * Probable chronic obstructive pulmonary disease * History of tobacco abuse * Pain-good control * VT prophylaxis * Stress ulcer prophylaxis * PT/OT * Disposition-okay for transfer to floor 11/30/18 09:59 Subjective: Sitting up in chair. Resting comfortably. Pain well controlled. Objective: Vital Signs Temp Pulse Resp BP Pulse Ox 36.8 C 82 17 106/71 98 11/30/18 00:00 11/30/18 07:35 11/30/18 07:35 11/30/18 07:35 11/30/18 07:35 Laboratory Results 11/29/18 06:06 11/29/18 06:06 11/29/18 11/30/18 12/01/18 05:59 05:59 05:59 Intake Total 2977 2740 Output Total 6687 4445 500 Balance -970 -1699 -500 - Time Spent With Patient Time Spent With Patient: 35 min of time spent with patient, 1/2 involved with coordination of care or counseling. Physical Exam - Physical Exam General Appearance: alert, no apparent distress EENT: PERRL/EOMI Neck: non-tender, supple Respiratory: prolonged expiration, No respiratory distress, No wheezing Cardiac/Chest: normal peripheral pulses, regular rate, rhythm Abdomen: normal bowel sounds, soft, distended, No non-tender Pelvic Exam: deferred Rectal: deferred Skin: normal color, warm/dry Extremities: non-tender Neuro/Psych: alert ICD10 Worksheet Patient Problems: Problems Problem Status Onset Acute renal failure Acute Pneumonia Acute Small bowel obstruction Acute Drug overdose - suicide Active Schizoaffective disorder Active
[2018-11-30] MEDS: CEPACOL LOZENGE PO PRN ×2 (13:44→16:38)
[2018-11-30] MEDS ORDERED: guaiFENesin 200 MG/10 ML UDL PO PRN (14:21)
[2018-11-30] MEDS: risperiDONE 2 MG TAB PO SCH ×2 (16:38→21:09)
[2018-11-30] MEDS ORDERED: PROTOCOL POTASSIUM 1 DOSE MISC PRN (17:25)
--- NOTE | 2018-11-30 17:28 | HOSPPROG ---
Hospitalist Progress Note Assessment/Plan: DIAGNOSES: * Small-bowel obstruction uncertain etiology, high-grade requiring NG decompression * Pneumonia, community-acquired, question if possibly related to aspiration due to her obstruction; patchy bilateral diffuse infiltrates, alveolar * Acute renal failure likely dehydration from above, improving * Acute on chronic hypoxemic respiratory failure with tobacco use and COPD * Schizophrenia with significant ongoing psychosis/delusions - unclear to me what her baseline is but doubt she has been getting medication absorbed at home with her bowel obstruction and may be an ongoing problem here. She is currently calm and working well with staff * Hyponatremia, hypovolemic * Argyria PLANS: * I have ordered abdominal x-rays to be done today those are still pending * Continue NG suction and IV hydration * Allow small volume oral fluid intake for now * Encourage ambulation and barger * DVT prophylaxis * Continue current treatment for pneumonia and COPD * Follow her schizophrenia very closely, will review her medicines may need to consider IV medications * Some scheduled IV Ativan at this time for prevention of seizures as this is medicine that she takes twice daily at home in addition to taking try level at home, neither which she would absorb reliably taken orally at this time * Continue physical occupational therapy * Will review with Dr. Joseph * Contrast her to med surge today Seen by me on hospitals rounds and multidisciplinary rounds today ADDENDUM TO THIS NOTE FROM EARLIER TODAY: renal function continues to improve notably her Na is now 147 and K is low Her abd xray shows persistant diffuse gaseous bowel distension, ? 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: Sinus Exam: alert, calm, very attentive and conversant, know she is in hospital and has some understanding of why; however she is very delusional, no tremor skin warm dry Obvious abnormal pigmentation of face due to argyria resps mildly labored lungs coarse BSs heart regular abd soft distended and tender, some bowel sounds present limbs warm, no edema iv site ok Lab data: Microbiology data: Blood cultures with no growth today Respiratory pathogen panel normal I have ordered abdominal x-rays for today but they are not yet done, will review when they are available - Objective: Vital Signs Temp Pulse Resp BP Pulse Ox 36.8 C 93 13 134/79 H 97 11/30/18 16:00 11/30/18 16:00 11/30/18 16:00 11/30/18 16:00 11/30/18 16:00 Laboratory Results 11/29/18 06:06 11/30/18 10:40 11/29/18 11/30/18 12/01/18 06:59 06:59 06:59 Intake Total 2080 2746 1466 Output Total 3050 4445 1050 Balance -970 -1690 416 ICD10 Worksheet Patient Problems: Problems Problem Status Onset Acute renal failure Acute Pneumonia Acute Small bowel obstruction Acute Drug overdose - suicide Active Schizoaffective disorder Active
[2018-11-30] MEDS: POTASSIUM Cl (KCl) 10 MEQ in D5W 1/2 NS 1,000 ML IV SCH (18:23)
--- NOTE | 2018-11-30 19:53 | SOAPPROG ---
SOAP Progress Note Assessment/Plan: Assessment: 58 y with schizophrenia admitted for community aquired vs aspiration pneumonia and sbo Passing flatus. No BM. Continued NG output No history of surgery, no hernias. Hope this will resolve with decompression Unsure if related to her medications for schizophrenia Cr improving Continue NG decompression Popsicle 1 per 12 hours for comfort hard candy or cough drops for comfort Will follow Hoping will not need surgery S: Glad a friend came to visit O: Sitting in chair Pleasant and well nourished BS present (hypoactive). Even softer today. Not tender Dark Bilious fluid in NG Plan: 11/29/18 08:33 58 11/30/18 19:52 Objective: Vital Signs Temp Pulse Resp BP Pulse Ox 37.1 C 84 17 121/75 H 97 11/30/18 19:32 11/30/18 19:32 11/30/18 19:32 11/30/18 19:32 11/30/18 19:32 Laboratory Results 11/29/18 06:06 11/30/18 18:32 11/29/18 11/30/18 12/01/18 05:59 05:59 05:59 Intake Total 2080 2746 1466 Output Total 3050 4445 1050 Balance -970 -1699 416 ICD10 Worksheet Patient Problems: Problems Problem Status Onset Acute renal failure Acute Pneumonia Acute Small bowel obstruction Acute Drug overdose - suicide Active Schizoaffective disorder Active
[2018-12-01] MEDS ORDERED: POTASSIUM CL 10 MEQ TAB PO ONE ×3 (00:27→21:59)
[2018-12-01] MEDS: LORazepam 2 MG/ML INJ IVP SCH ×4 (00:41→17:15)
[2018-12-01] MEDS: HEPARIN 5,000 UNIT/0.5 ML INJ SC SCH ×3 (04:58→21:39)
[2018-12-01] MEDS: IPRATROPIUM/ALBUTEROL 3 ML DEYVIAL IH SCH ×4 (05:17→22:16)
[2018-12-01] MEDS: POTASSIUM Cl (KCl) 10 MEQ in D5W 1/2 NS 1,000 ML IV SCH (05:53)
--- NOTE | 2018-12-01 08:39 | SOAPPROG ---
SOAP Progress Note Assessment/Plan: Assessment/Plan: 58 yo with schizophrenia admitted for community aquired vs aspiration pneumonia and sbo Passing flatus. No BM. Continued NG - clamp trial today. No history of surgery, no hernias. Hope this will resolve with decompression Unsure if related to her medications for schizophrenia Repeat Abd XR Dispo: S: Complaining of worsening pain and nausea O: Laying in bed, comfortable, NAD Pleasant and well nourished +BS, soft, nondistended, nontender. Dark Bilious fluid in NG 12/01/18 08:40 Objective: Vital Signs Temp Pulse Resp BP Pulse Ox 36.8 C 86 16 121/61 H 98 12/01/18 07:34 12/01/18 07:34 12/01/18 07:34 12/01/18 07:34 12/01/18 07:34 Laboratory Results 11/29/18 06:06 12/01/18 05:07 11/30/18 12/01/18 12/02/18 05:59 05:59 05:59 Intake Total 2746 1466 Output Total 4445 1800 100 Balance -1699 -334 -100 ICD10 Worksheet Patient Problems: Problems Problem Status Onset Acute renal failure Acute Pneumonia Acute Small bowel obstruction Acute Drug overdose - suicide Active Schizoaffective disorder Active
[2018-12-01] MEDS: AMPICILLIN/SULBACTAM 1.5 GM in NS 50 ML IV SCH ×2 (10:02→17:23)
[2018-12-01] MEDS: risperiDONE 1 MG TAB PO SCH (10:02)
[2018-12-01] MEDS: OXcarbazepine 300 MG TAB PO SCH ×3 (10:03→21:40)
[2018-12-01] MEDS: cloZAPine 100 MG TAB PO SCH ×3 (10:03→21:40)
[2018-12-01] MEDS: cloZAPine 25 MG TAB PO SCH (10:03)
[2018-12-01] MEDS: CEPACOL LOZENGE PO PRN (12:25)
--- NOTE | 2018-12-01 12:30 | SOAPPROG ---
SOAP Progress Note Assessment/Plan: Assessment/plan: * Small-bowel obstruction * Schizophrenia * Probable chronic obstructive pulmonary disease-still complains of cough -will add Robitussin DM * History of tobacco abuse * Pain-good control * VT prophylaxis * Stress ulcer prophylaxis * PT/OT Subjective: Complains of cough. Breathlessness stable. Objective: Vital Signs Temp Pulse Resp BP Pulse Ox 36.8 C 89 14 121/61 H 95 12/01/18 07:34 12/01/18 11:01 12/01/18 11:01 12/01/18 07:34 12/01/18 11:01 Laboratory Results 11/29/18 06:06 12/01/18 05:07 11/30/18 12/01/18 12/02/18 05:59 05:59 05:59 Intake Total 2746 1466 220 Output Total 4445 1800 100 Balance -6600 -980 120 - Time Spent With Patient Time Spent With Patient: 25 min of time spent with patient, over 1/2 involved with coordination of care or counseling. Case discussed with nursing Physical Exam - Physical Exam General Appearance: alert, no apparent distress EENT: PERRL/EOMI Neck: non-tender, supple Respiratory: prolonged expiration, other (Coughing), No respiratory distress, No wheezing Cardiac/Chest: normal peripheral pulses, regular rate, rhythm Peripheral Pulses: 2+: carotid (R), carotid (L), femoral (R), femoral (L), dorsalis-pedis (R), dorsalis-pedis (L) Abdomen: normal bowel sounds, non-tender, soft Pelvic Exam: deferred Rectal: deferred Skin: normal color, warm/dry Extremities: non-tender Neuro/Psych: alert, normal mood/affect ICD10 Worksheet Patient Problems: Problems Problem Status Onset Acute renal failure Acute Pneumonia Acute Small bowel obstruction Acute Drug overdose - suicide Active Schizoaffective disorder Active
[2018-12-01] MEDS: GUAIFENESIN/DM 10 ML UDCUP PO PRN ×2 (12:56→17:16)
--- NOTE | 2018-12-01 15:22 | HOSPPROG ---
Hospitalist Progress Note Assessment/Plan: DIAGNOSES: * Small-bowel obstruction uncertain etiology, high-grade requiring NG decompression * Pneumonia, community-acquired, question if possibly related to aspiration due to her obstruction; patchy bilateral diffuse infiltrates, alveolar * Acute renal failure likely dehydration from above, improving * Acute on chronic hypoxemic respiratory failure with tobacco use and COPD * Hyponatremia, hypovolemic, now hypernatremic; no signs of neurologic compromise * Schizophrenia with significant ongoing psychosis/delusions - unclear to me what her baseline is but doubt she has been getting medication absorbed at home with her bowel obstruction and may be an ongoing problem here. She is currently calm and working well with staff * Argyria PLANS: * continue to follow on clear liquid diet; advance if does well; if does not do well consider small bowel follow thru study tomorrow * Encourage ambulation and barger * will start D5 for her hypernatremia * DVT prophylaxis * Continue current treatment for pneumonia and COPD * Follow her schizophrenia very closely, as not sure how she is absorbing her multiple meds * Some scheduled IV Ativan at this time for prevention of seizures as this is medicine that she takes twice daily at home in addition to taking trileptal at home, both of which may be poorly absorbed in current setting * Continue physical occupational therapy SUBJECTIVE: fairly agitated/angry about being in hospital some flatus but no stool per her report, hard to get clear answer from her regarding level of abdominal pain not sob but states is coughing more OBJECTIVE Vitals reviewed: Overall stable vitals without fever Automation Machine Operator, my review: Sinus Exam: alert, oriented, anxious, aggravated about being in hosp skin warm dry Obvious abnormal pigmentation of face due to argyria resps mildly labored lungs slightlyl coarse BSs heart regular abd soft distended, less tender, some bowel sounds present high pitched limbs warm, no edema iv site ok Lab data: Hypernatremia is worse today, though BUN and creat continue to improve Microbiology data: Blood cultures with no growth today Respiratory pathogen panel normal - Objective: Vital Signs Temp Pulse Resp BP Pulse Ox 36.8 C 89 14 121/61 H 95 12/01/18 07:34 12/01/18 11:01 12/01/18 11:01 12/01/18 07:34 12/01/18 11:01 Laboratory Results 11/29/18 06:06 12/01/18 05:07 11/30/18 12/01/18 12/02/18 06:59 06:59 06:59 Intake Total 2746 1466 340 Output Total 4445 1900 100 Balance -1699 -434 240 ICD10 Worksheet Patient Problems: Problems Problem Status Onset Acute renal failure Acute Pneumonia Acute Small bowel obstruction Acute Drug overdose - suicide Active Schizoaffective disorder Active
[2018-12-01] MEDS ORDERED: D5W 1,000 ML IV SCH (15:30)
[2018-12-01] MEDS: risperiDONE 2 MG TAB PO SCH ×2 (15:38→21:44)
--- NOTE | 2018-12-01 17:02 | ASMTCMCOM ---
CM Note CM Note Notes: Reviewed chart, pt has schizophrenia but lives independently and manages well. PT/OT recommend SNF vs Home care. CM left message for sister Rody who is proxy. DC Plan: TBD Date Signed: 12/01/2018 05:01 PM Electronically Signed By:Jane Faye RN
[2018-12-02] MEDS: AMPICILLIN/SULBACTAM 1.5 GM in NS 50 ML IV SCH ×4 (01:07→18:15)
[2018-12-02] MEDS: LORazepam 2 MG/ML INJ IVP SCH ×2 (01:07→05:31)
[2018-12-02] MEDS: HEPARIN 5,000 UNIT/0.5 ML INJ SC SCH ×3 (05:31→21:04)
[2018-12-02] MEDS: IPRATROPIUM/ALBUTEROL 3 ML DEYVIAL IH SCH ×4 (07:07→21:00)
[2018-12-02] MEDS: cloZAPine 100 MG TAB PO SCH ×3 (09:45→21:05)
[2018-12-02] MEDS: cloZAPine 25 MG TAB PO SCH (09:45)
[2018-12-02] MEDS: risperiDONE 1 MG TAB PO SCH (09:45)
[2018-12-02] MEDS: OXcarbazepine 300 MG TAB PO SCH ×3 (09:45→21:05)
[2018-12-02] MEDS: ACETAMINOPHEN 325 MG TAB PO PRN (10:38)
[2018-12-02] MEDS: GUAIFENESIN/DM 10 ML UDCUP PO PRN (10:40)
[2018-12-02] MEDS ORDERED: POTASSIUM CL 10 MEQ TAB PO ONE ×2 (11:08→19:52)
--- NOTE | 2018-12-02 12:58 | SOAPPROG ---
SOAP Progress Note Assessment/Plan: Assessment/plan: * Small-bowel obstruction * Schizophrenia * Probable chronic obstructive pulmonary disease-cough improved -continue current nebs as well as Robitussin DM * History of tobacco abuse * Pain-good control * VT prophylaxis * Stress ulcer prophylaxis * PT/OT Subjective: Resting comfortably. No current complaints. Objective: Vital Signs Temp Pulse Resp BP Pulse Ox 37.1 C 87 24 H 132/87 H 94 12/02/18 07:41 12/02/18 11:31 12/02/18 11:31 12/02/18 07:41 12/02/18 11:31 Laboratory Results 11/29/18 06:06 12/02/18 05:14 12/01/18 12/02/18 12/03/18 05:59 05:59 05:59 Intake Total 1466 2353 Output Total 1800 200 Balance -334 2153 - Time Spent With Patient Time Spent With Patient: 25 min of time spent with patient, over 1/2 involved with coordination of care or counseling. Case discussed with nursing Physical Exam - Physical Exam General Appearance: alert EENT: PERRL/EOMI Neck: non-tender, supple Respiratory: prolonged expiration, No respiratory distress, No wheezing Cardiac/Chest: normal peripheral pulses, regular rate, rhythm Peripheral Pulses: 2+: carotid (R), carotid (L), femoral (R), femoral (L), dorsalis-pedis (R), dorsalis-pedis (L) Abdomen: soft, distended (Mild), No normal bowel sounds Pelvic Exam: deferred Rectal: deferred Skin: normal color, warm/dry Extremities: normal range of motion, non-tender, normal inspection, normal capillary refill Neuro/Psych: no motor/sensory deficits, alert, normal mood/affect, oriented x 3 ICD10 Worksheet Patient Problems: Problems Problem Status Onset Acute renal failure Acute Pneumonia Acute Small bowel obstruction Acute Drug overdose - suicide Active Schizoaffective disorder Active
[2018-12-02] MEDS: ONDANSETRON 4 MG/2 ML VIAL IVP PRN ×2 (13:21→17:03)
--- NOTE | 2018-12-02 13:21 | SOAPPROG ---
SOSHAIL[facility] Progress Note Assessment/Plan: Assessment: 58yo F c multiple medical issues, s SBO of unknown etiology - no nausea and she states that she is passing flatus. KUB reviewed and there is both small and large bowel dilatation - patient is very hard to get a read on as to what her baseline is and what is worse. Her nurse had her yesterday and thinks her abdomen is more firm today which I agree with - SBFT today - if fails will need ex-lap, etiology very uncertain as no masses, hernias or previous abdominal surgeries Plan: 12/02/18 13:19 Subjective: passing some flatus, maybe a little better Objective: Vital Signs Temp Pulse Resp BP Pulse Ox 37.1 C 87 24 H 132/87 H 94 12/02/18 07:41 12/02/18 11:31 12/02/18 11:31 12/02/18 07:41 12/02/18 11:31 Laboratory Results 11/29/18 06:06 12/02/18 05:14 12/01/18 12/02/18 12/03/18 05:59 05:59 05:59 Intake Total 1466 2353 Output Total 1800 200 Balance -334 2153 ICD10 Worksheet Patient Problems: Problems Problem Status Onset Acute renal failure Acute Pneumonia Acute Small bowel obstruction Acute Drug overdose - suicide Active Schizoaffective disorder Active
[2018-12-02] MEDS: risperiDONE 2 MG TAB PO SCH ×2 (17:02→21:05)
--- NOTE | 2018-12-02 17:02 | ASMTCMCOM ---
CM Note CM Note Notes: Spoke with pt's sister as pt was sleeping. Sister prefers discharge to [facility] as it is near her house. Pt agreeable. Referral sent. CM to follow. d/c plan: [facility] pending acceptance. Date Signed: 12/02/2018 05:01 PM Electronically Signed By:Barbara Mark
--- NOTE | 2018-12-02 17:17 | HOSPPROG ---
Hospitalist Progress Note Assessment/Plan: * SBO -tolerating clears but abdomen still very distended -per surgery - SBFT pending * Aspiration pneumonia -IV Unasyn * Schizophrenia -clozaril * Argyria * Hypernatremia - improved * Acute respiratory failure due to PNA -previously on 10L - now improved * Acute renal failure - improved * Metabolic encephalopathy -improved Subjective: tolerating clears, passing gas, no BM Objective: Vital Signs Temp Pulse Resp BP Pulse Ox 37.1 C 87 16 134/82 H 94 12/02/18 15:10 12/02/18 15:10 12/02/18 15:10 12/02/18 15:10 12/02/18 15:10 Laboratory Results 11/29/18 06:06 12/02/18 05:14 12/01/18 12/02/18 12/03/18 05:59 05:59 05:59 Intake Total 1466 2353 Output Total 1800 200 300 Balance -334 2153 -300 CT scan reviewed - high grade SBO axr viewed, my personal interpretation is -persistent SBO - Physical Exam Constitutional: no apparent distress, appears nourished, not in pain Cardiovascular: regular rate and rhythym, no murmur, rub, or gallop Respiratory: no respiratory distress, no rales or rhonchi, clear to auscultation Gastrointestinal: soft, non-tender abdomen, distension, No tenderness, No guarding, No rebound Skin: no rashes or abrasions, no fluctuance, no induration Neurologic: AAOx3, sensation intact bilaterally Psychiatric: interacting appropriately, not anxious, not encephalopathic, thought process linear ICD10 Worksheet Patient Problems: Problems Problem Status Onset Schizoaffective disorder Active Drug overdose - suicide Active Pneumonia Acute Small bowel obstruction Acute Acute renal failure Acute
[2018-12-02] MEDS: LORazepam 1 MG TAB PO SCH (21:05)
[2018-12-03] MEDS: AMPICILLIN/SULBACTAM 1.5 GM in NS 50 ML IV SCH ×2 (00:20→05:31)
[2018-12-03] MEDS: IPRATROPIUM/ALBUTEROL 3 ML DEYVIAL IH SCH (05:06)
[2018-12-03] MEDS: HEPARIN 5,000 UNIT/0.5 ML INJ SC SCH (05:34)
[2018-12-03] MEDS: ACETAMINOPHEN 325 MG TAB PO PRN (08:45)
[2018-12-03] MEDS: ONDANSETRON 4 MG/2 ML VIAL IVP PRN (08:45)
[2018-12-03] MEDS: risperiDONE 1 MG TAB PO SCH (08:46)
[2018-12-03] MEDS: cloZAPine 100 MG TAB PO SCH ×3 (08:46→21:00)
[2018-12-03] MEDS: cloZAPine 25 MG TAB PO SCH (08:46)
[2018-12-03] MEDS: OXcarbazepine 300 MG TAB PO SCH ×3 (08:46→21:00)
--- NOTE | 2018-12-03 09:17 | SOAPPROG ---
SOAP Progress Note Assessment/Plan: Assessment: 58yo F c multiple medical issues, s SBO of unknown etiology - SBFT: contrast into colon at 4hrs, slow but no obstruction seen which is good - she has good bowel sounds today, her abdominal distention per her report is normal - clears this AM. ADAT. Having loose BMs, the GG is working Plan: 12/02/18 13:19 12/03/18 09:16 Subjective: feeling better, having BMs Objective: Vital Signs Temp Pulse Resp BP Pulse Ox 36.7 C 88 18 133/85 H 90 L 12/03/18 08:00 12/03/18 08:00 12/03/18 05:06 12/03/18 08:00 12/03/18 08:00 Laboratory Results 11/29/18 06:06 12/03/18 05:34 12/02/18 12/03/18 12/04/18 05:59 05:59 05:59 Intake Total 2353 1200 Output Total 200 300 700 Balance 2153 900 -700 ICD10 Worksheet Patient Problems: Problems Problem Status Onset Acute renal failure Acute Pneumonia Acute Small bowel obstruction Acute Drug overdose - suicide Active Schizoaffective disorder Active
[2018-12-03] MEDS: GUAIFENESIN/DM 10 ML UDCUP PO PRN (09:40)
[2018-12-03] MEDS ORDERED: LORazepam 1 MG TAB PO PRN (09:58)
[2018-12-03] MEDS: LORazepam 1 MG TAB PO SCH (10:53)
[2018-12-03] MEDS: POLYETHYLENE GLYCOL 3350 17 GM PKT PO SCH ×2 (10:55→21:00)
[2018-12-03] MEDS ORDERED: POTASSIUM CL 10 MEQ TAB PO ONE (11:14)
[2018-12-03] MEDS: risperiDONE 2 MG TAB PO SCH ×2 (15:53→21:01)
[2018-12-03] MEDS: CEPACOL LOZENGE PO PRN (15:53)
--- NOTE | 2018-12-03 16:03 | HOSPPROG ---
Hospitalist Progress Note Assessment/Plan: * Ileus - suspect chronically sluggish, dilated bowels -now stooling, advance diet -needs maintenance bowel regimen - Miralax * Aspiration pneumonia -change to PO Augmentin * Schizophrenia -clozaril * Argyria * Hypernatremia - improved * Acute respiratory failure due to PNA -previously on 10L - now improved * Acute renal failure - improved * Metabolic encephalopathy -improved Subjective: Lots of stool Objective: Vital Signs Temp Pulse Resp BP Pulse Ox 36.7 C 88 18 133/85 H 90 L 12/03/18 08:00 12/03/18 08:00 12/03/18 05:06 12/03/18 08:00 12/03/18 08:00 Laboratory Results 11/29/18 06:06 12/03/18 05:34 12/02/18 12/03/18 12/04/18 05:59 05:59 05:59 Intake Total 2353 1200 Output Total 200 300 700 Balance 2153 900 -700 case d/w Dr. Ryan regarding ileus and slow GI function SBFT - no obstruction, dilated SB, 4 hours for contrast to cecum - Physical Exam Constitutional: no apparent distress, appears nourished, not in pain Cardiovascular: regular rate and rhythym, no murmur, rub, or gallop Respiratory: no respiratory distress, no rales or rhonchi, clear to auscultation Gastrointestinal: normoactive bowel sounds, distension, No tenderness, No ascites, No guarding, No rebound Skin: no rashes or abrasions, no fluctuance, no induration Neurologic: AAOx3, sensation intact bilaterally Psychiatric: interacting appropriately, not anxious, not encephalopathic, thought process linear ICD10 Worksheet Patient Problems: Problems Problem Status Onset Schizoaffective disorder Active Drug overdose - suicide Active Pneumonia Acute Small bowel obstruction Acute Acute renal failure Acute
[2018-12-03] MEDS: FAMOTIDINE 20 MG/NACL 50 ML IV SCH (18:46)
[2018-12-03] MEDS ORDERED: methylPREDNISolone SOD SUCC 125 MG/2 ML VIAL IVP ONE (18:50)
[2018-12-03] MEDS ORDERED: DEXAMETHASONE 4 MG/ML VIAL IVP ONE (19:37)
[2018-12-03] MEDS ORDERED: DEXAMETHASONE 4 MG/ML VIAL ONE (19:45)
--- NOTE | 2018-12-03 20:40 | SOAPPROG ---
SOAP Progress Note Assessment/Plan: Assessment: Pt with submandibular and neck swelling. Endoscopic evaluation revealed normal appearing epiglottis. Epiglottis was pink normal in size, slight omega shape, not swollen. True vocal cords visualized with symmetric mvmt. No asymmetry to the pharynx seen. Would recommend scheduled steroids and abx to cover gram negative and anaerobes. Pt with poor dental hygiene. Plan: Will see pt tomorrow to eval changes to submandibular swelling 12/03/18 20:33 12/03/18 20:48 12/03/18 20:48 Subjective: Pt reports that she hadn't eaten for 5 days. Then in hospital she ate larkburger and started to get swelling of her neck. No difficulty breathing. No pain. No difficulty speaking. No trismus. Able to tollerate PO. PMHx of schizophrenia and skin pigmentation disorder. Objective: Vital Signs Temp Pulse Resp BP Pulse Ox 36.7 C 90 18 136/91 H 97 12/03/18 20:06 12/03/18 20:06 12/03/18 20:06 12/03/18 20:06 12/03/18 20:06 Laboratory Results 11/29/18 06:06 12/03/18 18:26 12/02/18 12/03/18 12/04/18 05:59 05:59 05:59 Intake Total 2353 1200 450 Output Total 954 171 1390 Balance 2153 900 -2350 Pt in NAD, speaking in full sentences. Pronounced submandibular swelling. Submandibular glands were large to palpation, approx 3cm in size. Non tender. No trismus, good tongue mobility. Mucosa under tongue normal appearing and non tender to palpation. No induration under tongue. No dyspnea, afebrile. Endoscope revealed normal appearing epiglottis, pink in color. No pooling of secretions. True vocal cords were symmetric in mvmt. Enlarged arytenoids, but no erythema. Pharynx was slightly narrowed overall. No other masses visualized. - Time Spent With Patient Time Spent With Patient: 25 - Pending Discharge Pending Discharge Within 24 Hours: No ICD10 Worksheet Patient Problems: Problems Problem Status Onset Acute renal failure Acute Pneumonia Acute Small bowel obstruction Acute Drug overdose - suicide Active Schizoaffective disorder Active
[2018-12-03] MEDS ORDERED: IOHEXOL 300 mgI/ML (OMNIPAQUE) 150 ML BTL IV ONE (20:41)
[2018-12-03] MEDS ORDERED: AMOXICILLIN/CLAVULANATE POT 875/125 MG TAB PO SCH (21:00)
[2018-12-03] MEDS: PSYLLIUM METAMUCIL 1 PKT PO SCH (21:00)
[2018-12-03] MEDS: POTASSIUM Cl (KCl) 100 ML IV SCH ×2 (22:33→23:46)
--- NOTE | 2018-12-03 22:42 | HOSPPROG ---
Hospitalist Progress Note Assessment/Plan: called to assess patient by nursing staff due to concern for new acute lower neck and jaw swelling. upon entering room noticed patients lower jaw/neck with substantial swelling. patient maintaining air way, did not appear distressed. On examination she did have enlarged submandibular lymph nodes but no swollen tongue, and no stridor on examination. Concern for possible allergic reaction, vs ludwigs vs tonsillar abscess vs other. -called ent to evaluate -benadryl 50 IV now -pepcid 20 IV -decadron 10mg now -albuterol -lateral neck film----> neck film showing concern for epiglotitis and possible abscess. I called back ENT and asked them to come see patient. ENT PA came and evaluated patient and performed laryngoscope and said cords and epiglotitis looks normal. I ordered CT neck/soft tissue with contrast that also with concerning findings. ENT PA recommends continuing abx, cont decadron, and they will re eval in am. I will transfer to SDU for closer monitoring, and start zosyn in case of abscess in neck/tonsils. Objective: Vital Signs Temp Pulse Resp BP Pulse Ox 36.7 C 77 18 136/91 H 97 12/03/18 20:06 12/03/18 22:36 12/03/18 22:36 12/03/18 20:06 12/03/18 22:36 Laboratory Results 11/29/18 06:06 12/03/18 18:26 12/02/18 12/03/18 12/04/18 05:59 05:59 05:59 Intake Total 2353 1200 450 Output Total 924 279 4655 Balance 2153 900 -2350 ICD10 Worksheet Patient Problems: Problems Problem Status Onset Acute renal failure Acute Pneumonia Acute Small bowel obstruction Acute Drug overdose - suicide Active Schizoaffective disorder Active
[2018-12-04] MEDS: PIPERACILLIN/TAZO 3.375 GM/DEX 50 ML IV SCH ×3 (00:52→13:32)
[2018-12-04] MEDS: DEXAMETHASONE 4 MG/ML VIAL IVP SCH ×2 (00:54→08:23)
[2018-12-04 05:22] LABS: PLATELET COUNT 173 10^3/uL (150-400)
[2018-12-04] MEDS: FAMOTIDINE 20 MG/NACL 50 ML IV SCH (08:22)
[2018-12-04] MEDS: ENOXAPARIN 40 MG/0.4 ML SYR SC SCH (08:22)
[2018-12-04] MEDS: risperiDONE 1 MG TAB PO SCH ×2 (08:23→13:28)
[2018-12-04] MEDS: POLYETHYLENE GLYCOL 3350 17 GM PKT PO SCH ×3 (08:23→20:57)
[2018-12-04] MEDS: OXcarbazepine 300 MG TAB PO SCH ×4 (08:23→21:11)
[2018-12-04] MEDS: PSYLLIUM METAMUCIL 1 PKT PO SCH ×3 (08:23→20:57)
[2018-12-04] MEDS: cloZAPine 100 MG TAB PO SCH ×3 (08:23→20:56)
[2018-12-04] MEDS: cloZAPine 25 MG TAB PO SCH ×2 (08:23→14:04)
[2018-12-04] MEDS: predniSONE 20 MG TAB PO SCH (13:28)
--- NOTE | 2018-12-04 16:24 | HOSPPROG ---
Hospitalist Progress Note Assessment/Plan: * Ileus - suspect chronically sluggish, dilated bowels -now stooling, advanced diet -needs maintenance bowel regimen - Miralax * Allergic reaction with neck swelling -no airway compromise per ENT -unclear what she reacted to - no new meds -change to PO prednisone * Aspiration pneumonia -PO Augmentin -never got PO Augmentin yesterday prior to allergic rx * Schizophrenia -clozaril * Argyria * Hypernatremia - improved * Acute respiratory failure due to PNA -previously on 10L - now improved * Acute renal failure - improved * Metabolic encephalopathy -improved Subjective: Much better, no further throat symptoms Objective: Vital Signs Temp Pulse Resp BP Pulse Ox 36.6 C 72 14 166/82 H 97 12/04/18 16:00 12/04/18 16:00 12/04/18 16:00 12/04/18 16:00 12/04/18 16:00 Laboratory Results 12/04/18 05:12 12/04/18 05:12 12/03/18 12/04/18 12/05/18 05:59 05:59 05:59 Intake Total 1200 450 Output Total 300 2800 550 Balance 900 -2350 -550 Neck xray viewed, my personal interpretation is - not overly concerning upper lobe infiltrates neck CT - soft tissue swelling of airway - Physical Exam Constitutional: no apparent distress, appears nourished, not in pain Cardiovascular: regular rate and rhythym, no murmur, rub, or gallop Respiratory: no respiratory distress, no rales or rhonchi, clear to auscultation Gastrointestinal: normoactive bowel sounds, soft, non-tender abdomen, no palpable masses Skin: no rashes or abrasions, no fluctuance, no induration Neurologic: AAOx3, sensation intact bilaterally Psychiatric: interacting appropriately, not anxious, not encephalopathic, thought process linear ICD10 Worksheet Patient Problems: Problems Problem Status Onset Schizoaffective disorder Active Drug overdose - suicide Active Pneumonia Acute Small bowel obstruction Acute Acute renal failure Acute
[2018-12-04] MEDS: risperiDONE 2 MG TAB PO SCH ×2 (17:03→21:11)
[2018-12-04] MEDS: AMOXICILLIN/CLAVULANATE POT 875/125 MG TAB PO SCH (20:56)
[2018-12-05] MEDS: risperiDONE 1 MG TAB PO SCH (08:41)
[2018-12-05] MEDS: predniSONE 20 MG TAB PO SCH (08:41)
[2018-12-05] MEDS: AMOXICILLIN/CLAVULANATE POT 875/125 MG TAB PO SCH (08:41)
[2018-12-05] MEDS: cloZAPine 100 MG TAB PO SCH (08:41)
[2018-12-05] MEDS: ENOXAPARIN 40 MG/0.4 ML SYR SC SCH ×2 (08:43→08:44)
[2018-12-05] MEDS: cloZAPine 25 MG TAB PO SCH (09:02)
[2018-12-05] MEDS: OXcarbazepine 300 MG TAB PO SCH (09:02)
[2018-12-05] MEDS: POLYETHYLENE GLYCOL 3350 17 GM PKT PO SCH (09:03)
[2018-12-05] MEDS: PSYLLIUM METAMUCIL 1 PKT PO SCH (09:04)
--- NOTE | 2018-12-05 10:17 | SOAPPROG ---
SOAP Progress Note Assessment/Plan: Assessment: PT eating without difficulty and her voice is clear. No tenderness or worrisome findings on physical exam. Plan: We will sign off for now. Please contact us if her symptoms change or worsen. Thank you 12/05/18 11:12 Subjective: This exam was on Tuesday. I typed this on tuesday12/05/18. I do not know why the date is wrong on the note generated by this system. I am not an IT expert. Pt watching TV and eating. She says she feels fine. Objective: Vital Signs Temp Pulse Resp BP Pulse Ox 37.1 C 89 20 140/83 H 94 12/05/18 08:22 12/05/18 08:22 12/05/18 08:22 12/05/18 08:22 12/05/18 08:22 Laboratory Results 12/04/18 05:12 12/05/18 05:00 12/04/18 12/05/18 12/06/18 05:59 05:59 05:59 Intake Total 450 1500 Output Total 2800 550 Balance -2350 950 Neck exam shows nontender soft edema of the submental soft tissues. No adenopathy. OC/OP no trismus, tongue and floor of mouth are normal. ICD10 Worksheet Patient Problems: Problems Problem Status Onset Acute renal failure Acute Pneumonia Acute Small bowel obstruction Acute Drug overdose - suicide Active Schizoaffective disorder Active
--- NOTE | 2018-12-05 10:40 | PDIAF ---
- Diagnosis Diagnosis: Ileus, chronic bowel dilation and sluggishness Code Status: Full Code - Medication Management Discharge Medications: electronically signed and located in the Home Medication List. - Orders Isolation Type: None Diet Recommendation: no restrictions on diet Additional Instructions: Stop prednisone after 2 more days Titrate miralax and metamucil for 1 good BM per day, she MUST have daily BM - Follow Up Care Current Providers and Referrals: Patient,NotPresent [Unknown] - As per Instructions
[2018-12-05 10:53] VITALS: BP 125/76
--- NOTE | 2018-12-05 11:24 | SOAPPROG ---
SOAP Progress Note Assessment/Plan: Assessment: PT eating without difficulty and her voice is clear. No tenderness or worrisome findings on physical exam. PT doing well as of 12/04/18. Plan: We will sign off for now. Please contact us if her symptoms change or worsen. Thank you 12/05/18 11:12 12/05/18 11:23 Subjective: PT says she feels ok. Watching tv and eating Objective: Vital Signs Temp Pulse Resp BP Pulse Ox 36.8 C 92 16 125/76 H 96 12/05/18 10:51 12/05/18 10:51 12/05/18 10:51 12/05/18 10:51 12/05/18 10:51 Laboratory Results 12/04/18 05:12 12/05/18 05:00 12/04/18 12/05/18 12/06/18 05:59 05:59 05:59 Intake Total 450 1500 Output Total 2800 550 Balance -2350 950 PT examined yesterdya. Cant get this system to work sorry. PT feels fine Eating and talking normally neck has nontender soft edema of submental region. No adenopathy OC/OP are normal ICD10 Worksheet Patient Problems: Problems Problem Status Onset Acute renal failure Acute Pneumonia Acute Small bowel obstruction Acute Drug overdose - suicide Active Schizoaffective disorder Active
--- NOTE | 2018-12-05 14:50 | ASMTLACE ---
ISMAEL Length of stay for Answers: 7-13 days current admission Acuity / Level of Answers: Yes Care: Did the patient have an inpatient admission? Comorbidities - select Answers: Other Notes: ileus, chronic bowel all that apply dilation # of Emergency department Answers: 1-2 visits in the last 6 months Social determinants Answers: Mental health diagnosis (anxiety, depression, pers onality disorders, etc.) Score: 13 Date Signed: 12/05/2018 02:49 PM Electronically Signed By:Julia Tiwari LCSW
--- NOTE | 2018-12-05 14:55 | ASMTDCNOTE ---
Case Management Discharge Discharge Order Complete? Answers: Yes Patient to Obtain Answers: Other Notes: [facility] Medications Transportation Arranged Answers: Other Notes: [facility] Transport will Pick (Date 12/05/2018 12:00 AM & Time) Faxed Final Orders Answers: Yes Notes: [facility] Agency/Facility Transfer Answers: Yes Notes: [facility] Report Printed & Faxed to Receiving Agency Family Notified Answers: Yes Notes: sisterRody Discharge Comments Notes: Patient is discharging to [facility] today. Discharge summaries were Allscripted to [facility]. Transport was set up by Erika at [facility] with a diamond picker time of 4:00 PM. ([phone]) Report was called by patient's nurse, Avi. No further needs. Date Signed: 12/05/2018 02:55 PM Electronically Signed By:Julia Tiwari LCSW
--- NOTE | 2018-12-05 14:58 | ASDISCHSUM ---
Discharge Information Plan Status:SNF Medically Cleared to Leave:12/04/2018 Discharge Date:12/04/2018 CM D/C Disposition:[facility] ADT D/C Disposition:Senior Care Facility Projected Discharge Date:12/05/2018 11:00 AM Transportation at D/C:Wheelchair Van Discharge Delay Reason: Follow-Up Date:12/05/2018 11:00 AM Discharge Slot:2 - 12:01 pm - 18:00 pm Final Diagnosis:Ileus, chronic bowel dilation Placement Information Referral Type:*Retirement/SNF Referral ID:[id number] Provider Name:[facility] Address 1:[address] Address 2: City:[place] Selection Factors: State:[place] Patient Contact Information Contact Name:MARIBETH Relationship:Sister Address: Work Phone: [facility]:[place] Alternate Phone: [facility]/Zip Code:[place] [address] Email: Financial Information Financial Class:Medicare Primary Plan Desc:MEDICARE INPATIENT Primary Plan Number:[id number] Secondary Plan Desc:[place] Secondary Plan Number:[id number] Assessment Information LACE LACE Length of stay for Answers: 7-13 days current admission Acuity / Level of Answers: Yes Care: Did the patient have an inpatient admission? Comorbidities - select Answers: Other Notes: ileus, chronic bowel all that apply dilation # of Emergency department Answers: 1-2 visits in the last 6 months Social determinants Answers: Mental health diagnosis (anxiety, depression, pers onality disorders, etc.) Score: 13 Date Signed: 12/05/2018 02:49 PM Electronically Signed By:Julia Tiwari LCSW [facility] CM Assessment Living Arrangements What is your living Answers: Alone arrangement? Who do you live with? Type Of Residence What kind of residence do Answers: Apartment you live in? Type of Residence Facility Name Notes: Patient has hx of schizophrenia, lives alone, fairly independent. Patient's sister Rody checks on her regularly and will serve as proxy for the patient. Paperwork in the front of the chart. Discharge Plan Comments Coordination Status Comments Notes: Patient is a 58yo single female with hx of schizophrenia who presents to the ED with several days of nausea and vomiting. Patient has been admitted for a small bowel obstruction, hypoxemic respiratory failure, acute kidney injury, hyponatremia, acute metabolic encephalopathy, nausea, vomiting, dehydration. Patient sees Dr. Goodwin for her schizophrenia and is high functioning. OT/PT have been ordered for the patient. D/C plan TBD.CM will follow. Date Signed: 11/29/2018 09:35 AM Electronically Signed By:Julia Tiwari LCSW [facility] CM Progress Note CM Note CM Note Notes: Reviewed chart, pt has schizophrenia but lives independently and manages well. PT/OT recommend SNF vs Home care. CM left message for sister Rody who is proxy. DC Plan: TBD Date Signed: 12/01/2018 05:01 PM Electronically Signed By:Jane Faye RN [facility] CM Progress Note CM Note CM Note Notes: Spoke with pt's sister as pt was sleeping. Sister prefers discharge to [facility] as it is near her house. Pt agreeable. Referral sent. CM to follow. d/c plan: [facility] pending acceptance. Date Signed: 12/02/2018 05:01 PM Electronically Signed By:Barbara Mark Case Management Discharge Plan Note Case Management Discharge Discharge Order Complete? Answers: Yes Patient to Obtain Answers: Other Notes: [facility] Medications Transportation Arranged Answers: Other Notes: [facility] Transport will Pick (Date 12/05/2018 12:00 AM & Time) Faxed Final Orders Answers: Yes Notes: [facility] Agency/Facility Transfer Answers: Yes Notes: [facility] Report Printed & Faxed to Receiving Agency Family Notified Answers: Yes Notes: Rody velazquez Discharge Comments Notes: Patient is discharging to [facility] today. Discharge summaries were Allscripted to [facility]. Transport was set up by Erika at [facility] with a hand picker time of 4:00 PM. ([phone]) Report was called by patient's nurse, Avi. No further needs. Date Signed: 12/05/2018 02:55 PM Electronically Signed By:Julia Tiwari LCSW Intervention Information Intervention Type:*Incorrect Registration Date of Service:11/28/2018 04:43 PM Patient Type:Observation Staff Member:Anaid Ha Hours: Discipline: Severity: Comment: Intervention Type:*IM-Signed Date of Service:12/05/2018 01:31 PM Patient Type:Inpatient Staff Member:Pepper Goldstein Hours: Discipline: Severity: Comment:
--- NOTE | 2018-12-05 18:37 | GDS ---
[f rep st] DISCHARGE SUMMARY DISCHARGE DIAGNOSES: 1. Ileus. 2. Chronically dilated, sluggish bowels perhaps due to long-term antipsychotic use. 3. Anaphylactic allergic reaction. 4. Aspiration pneumonia. 5. Acute respiratory failure. 6. Schizophrenia. 7. Argyria. 8. Hypo and hypernatremia. 9. Acute renal failure. 10. Metabolic encephalopathy. HISTORY: Shamar is a 58-year-old female, well controlled schizophrenic, who presented with severe i leus versus small bowel obstruction, as well as an aspiration pneumonia, causing acute respiratory fa ilure requiring up to 10 L of oxygen. General Surgery saw her in consultation. For a period of time , we were unable to tell whether or not she had a partial small bowel obstruction versus an ileus. E ventually, a small bowel follow-through was obtained which showed that there is no obstruction, but i t took 4 hours for the contrast to reach her cecum. Her bowels are chronically dilated. We suspect this may be due to her long-term antipsychotic use. She previously used daily Metamucil, but for bran e reason had stopped this, and would sometimes get up to 10 days without a bowel movement. She was e ducated at length regarding the need for constant bowel protocol and ensuring she has a daily bowel m ovement. I discharged her on scheduled MiraLAX, and she can also add back in Metamucil to ensure funmilayo t she has 1 good bowel movement per day. She was able to tolerate a regular diet at discharge. She was able to wean off oxygen, and did complete a full course of antibiotics during her hospitalization , and no further antibiotics were needed at hospital discharge. She was critically ill on presentation and also had acute renal failure, metabolic encephalopathy, as well as electrolyte disturbances in the way of fluctuating sodiums, all of this is resolved at [facility]ch [facility]. Just prior to discharge, when she was eating one of her first meals, her sister went and got her a La rkburger, and shortly after starting to eat the Larkburger, she developed a severe anaphylactic react ion, requiring transfer to ICU. She was treated per usual protocol with steroids, Pepcid, and Benadry l. ENT saw her emergently and did a laryngoscopy, and there was no evidence of any airway compromise or epiglottitis. There were absolutely no new medications given around this time. So I do not thin k this was a drug reaction. I wonder if she reacted to something in the food, although she has no kn own food allergies. She will discharge on a short course of prednisone. Her sister plans to never f eed a Larkburger ever again. She is debilitated after this chronic illness and will go to [facility] for rehabilitation. She usual ly lives independently, but does require walking up to the 3rd floor to get into her apartment as wel l as a daily walk of 1 mile to do her ADLs, as I do not believe she drives. She will discharge to [facility] for rehabilitation until she returns to baseline independence. Her sister is an title attorney and her advocate, and seems to do a good job of keeping her on track. DISCHARGE MEDICATIONS: Please see computer record for full detailed list. NEW MEDICATIONS: 1. MiraLAX 17 g p.o. twice daily. 2. Prednisone 40 mg p.o. daily for 2 more days. 3. Metamucil 1 packet twice daily as needed. ADDITIONAL DISCHARGE INSTRUCTIONS: 1. [facility] for [facility]. 2. Titrate MiraLAX and Metamucil to 1 good bowel movement per day. Greater than 30 minutes' time was spent arranging this discharge. Patient is seen and examined by me on the day of discharge. /[id number]/[id number]
== END 2018-12-05 16:30 | DRG 388 ==
LOC: EDUNIT# → OBSVTOIN 15:22 → F2N 16:24 → F3E 11-30 17:43 → F2N 12-03 20:05 → F3E 12-04 17:26
PROVIDERS: ADMIT Internal Medicine; ATTEND Internal Medicine
DX: K56.7 Ileus, unspecified (principal); J69.0 Pneumonitis due to inhalation of food and vomit; J96.00 Acute respiratory failure, unspecified whether with hypoxia or hypercapnia; G93.41 Metabolic encephalopathy; E87.0 Hyperosmolality and hypernatremia; N17.9 Acute kidney failure, unspecified; T78.2XXA Anaphylactic shock, unspecified, initial encounter; T43.505A Adverse effect of unspecified antipsychotics and neuroleptics, initial encounter; K59.8 Other specified functional intestinal disorders; E86.0 Dehydration; F20.9 Schizophrenia, unspecified; Z72.0 Tobacco use
CPT/HCPCS: 96365; 97110-GP; 97116-GP; 97162-GP; 97165-GO; 97530-GO; 97530-GP; 97535-GO; G0480; J0295; J0456; J0696; J1100; J1200; J1644; J1650; J2060; J2405; J2543; J2930; J3480; J7512; Q9967

== ENCOUNTER 2019-02-01 12:43 | Emergency (ER) | payer OTHER, MEDICAID ==
--- NOTE | 2019-02-01 13:15 | EDPHY ---
H & P Stated Complaint: difficulty speaking Time Seen by Provider: 02/01/19 12:58 HPI/ROS: CHIEF COMPLAINT: Difficulty speaking HISTORY OF PRESENT ILLNESS: 58-year-old female with schizoaffective disorder presents with difficulty speaking. Yesterday at lunch time, she was more sleepy than usual and kept falling asleep during lunch. Associated with difficulty speaking. She is having difficulty concentrating and with completing a sentence. Also having trouble with balance. History of similar symptoms twice, once prior to a small bowel obstruction approximately 1 year ago and also d/t a change in medications 2-3 years ago. No recent head injury and no recent change in medications. No recent illness and no known fever. No history of CVA/TIA. REVIEW OF SYSTEMS: complete 10 point ROS reviewed and is negative except for the noted elements in the HPI - Personal History Current Tetanus/Diphtheria Vaccine: Yes Current Tetanus Diphtheria and Acellular Pertussis (TDAP): Yes Tetanus Vaccine Date: <10 years ago - Medical/Surgical History Hx Asthma: No Hx Chronic Respiratory Disease: No Hx Diabetes: No Hx Cardiac Disease: No Hx Renal Disease: No Hx Cirrhosis: No Hx Alcoholism: No Hx HIV/AIDS: No Hx Splenectomy or Spleen Trauma: No Other PMH: schizophrenia - Social History Smoking Status: Former smoker Alcohol Use: Sober Drug Use: None - Physical Exam Exam: General Appearance: Alert, pleasant able to answer yes no questioning, difficulty answering complex questions, speech is clear Eyes: Pupils equal and round, no conjunctival pallor or injection ENT, Mouth: Mucous membranes moist Neck: Normal inspection Respiratory: Lungs are clear to auscultation Cardiovascular: Regular rate and rhythm Gastrointestinal: Abdomen is soft and nontender Neurological: Alert, oriented x3, cranial nerves II through XII intact, motor 5 /5, sensory grossly intact, normal and steady gait Skin: Warm and dry, grayish discoloration of skin Extremities: Nontender, no pedal edema Psychiatric: Mood and affect normal, decreased ability to concentrate Constitutional: Initial Vital Signs Temperature (C) 36.6 C 02/01/19 12:48 Heart Rate 90 02/01/19 12:48 Respiratory Rate 16 02/01/19 12:48 Blood Pressure 138/114 H 02/01/19 12:48 O2 Sat (%) 96 02/01/19 12:48 O2 Delivery Mode Room Air Allergies/Adverse Reactions: No Known Allergies Allergy (Verified 02/01/19 12:47) Home Medications: Medication Instructions Recorded LORazepam [Ativan (*)] 1 mg PO BID 04/27/12 risperiDONE [Risperdal 1mg (*)] 1 mg PO DAILY 04/27/12 OXcarbazepine [Trileptal 300mg (*)] 300 mg PO BID@09,16 11/28/18 OXcarbazepine [Trileptal 300mg (*)] 300 mg PO HS 11/28/18 Ondansetron Odt [Zofran Odt 4 mg 4 mg PO Q8HRS PRN 11/28/18 (*)] cloZAPine [Clozaril (*)] 25 mg PO DAILY 11/28/18 cloZAPine [Clozaril (*)] 100 mg PO BID@,16 11/28/18 cloZAPine [Clozaril (*)] 400 mg PO HS 11/28/18 risperiDONE [Risperdal 1mg (*)] 2 mg PO BID@,21 11/28/18 Polyethylene Glycol 3350 [Miralax 17 gm PO BID #10 pkt 12/05/18 17 gm (*)] Psyllium Seed [Metamucil (*)] 1 each PO BID PRN #60 pkt 12/05/18 Medical Decision Making - Diagnostics EKG Interpretation: EKG interpreted by me reveals normal sinus rhythm, rate 85, prolonged QT interval, no ST or T segment changes. Interpretation: Abnormal EKG Imaging Results: Imaging Impressions Chest X-Ray 02/01/19 13:15 Impression: Mild peribronchial thickening which can be seen with airways disease /bronchitis. Head CT 02/01/19 13:15 Impression: 1. No acute intracranial process. 2. Age-appropriate generalized cerebral volume loss with sequelae of chronic microvascular ischemic disease. Findings and recommendations discussed with ALINA CALLOWAY at 1350 hour, 2018. Imaging: Discussed imaging studies w/ call worker Radiologist, I viewed and interpreted images myself ED Course/Re-evaluation: This pt presents with a change in speech, sleepiness, and unsteady gait. Neuro exam is normal except for difficulty articulating thoughts and lack of concentration. ?medication effect, doubt CVA. Labs/CT head ordered. 1430: study results d/w pt, unremarkable. Speech and concentration back to normal. d/w pt again possibility of medication error. She has a home health nurse who assists with medications and has her pill box with her. No evidence of CVA/TIA. I feel that she is safe and stable for discharge home. Will follow up with her primary care physician in the office. Warning signs discussed. Differential Diagnosis: Altered mental status including but not limited to hypoglycemia, infectious process, electrolyte abnormality, head injury, CVA, and intoxicants. - Data Points Laboratory Results: Laboratory Results 02/01/19 13:28 02/01/19 13:28 02/01/19 02/01/19 13:28 13:28 WBC 6.31 10^3/uL 10^3/uL (3.80-9.50) RBC 3.89 10^6/uL L 10^6/uL (4.18-5.33) Hgb 11.6 g/dL L g/dL (12.6-16.3) Hct 34.7 % L % (38.0-47.0) MCV 89.2 fL fL (81.5-99.8) MCH 29.8 pg pg (27.9-34.1) MCHC 33.4 g/dL g/dL (32.4-36.7) RDW 14.0 % % (11.5-15.2) Plt Count 164 10^3/uL 10^3/uL (150-400) MPV 9.4 fL fL (8.7-11.7) Neut % (Auto) 70.8 % % (39.3-74.2) Lymph % (Auto) 20.8 % % (15.0-45.0) [place] % (Auto) 7.4 % % (4.5-13.0) Eos % (Auto) 0.0 % L % (0.6-7.6) Baso % (Auto) 0.5 % % (0.3-1.7) Nucleat RBC Rel Count 0.0 % % (0.0-0.2) Absolute Neuts (auto) 4.47 10^3/uL 10^3/uL (1.70-6.50) Absolute Lymphs (auto) 1.31 10^3/uL 10^3/uL (1.00-3.00) Absolute Monos (auto) 0.47 10^3/uL 10^3/uL (0.30-0.80) Absolute Eos (auto) 0.00 10^3/uL L 10^3/uL (0.03-0.40) Absolute Basos (auto) 0.03 10^3/uL 10^3/uL (0.02-0.10) Absolute Nucleated RBC 0.00 10^3/uL 10^3/uL (0-0.01) Immature Gran % 0.5 % % (0.0-1.1) Immature Gran # 0.03 10^3/uL 10^3/uL (0.00-0.10) Sodium 138 mEq/L mEq/L (135-145) Potassium 4.6 mEq/L mEq/L (3.5-5.2) Chloride 106 mEq/L mEq/L (97-110) Carbon Dioxide 25 mEq/l mEq/l (22-31) Anion Gap 7 mEq/L mEq/L (6-14) BUN 22 mg/dL mg/dL (7-23) Creatinine 1.2 mg/dL H mg/dL (0.6-1.0) Estimated GFR 46 Glucose 104 mg/dL H mg/dL (70-100) Calcium 9.5 mg/dL mg/dL (8.5-10.4) Departure - Departure Disposition: Home, Routine, Self-Care Clinical Impression: Slurring of speech Condition: Good Instructions: Additional Information Additional Instructions: Return for recurrent or worsening symptoms. Referrals: Yumiko Kramer MD [Primary Care Provider] - As per Instructions (Call to make an appointment.)
[2019-02-01 13:44] LABS: PLATELET COUNT 164 10^3/uL (150-400)
[2019-02-01 15:00] VITALS: BP 161/102
--- NOTE | 2019-02-01 20:06 | CPEKG ---
Test Reason : OPEN Blood Pressure : / mmHG Vent. Rate : 085 BPM Atrial Rate : 085 BPM P-R Int : 174 ms QRS Dur : 105 ms QT Int : 429 ms P-R-T Axes : 050 -03 044 degrees QTc Int : 511 ms Sinus rhythm Left atrial enlargement Prolonged QT interval Confirmed by Nati Gregory ([id number]) on 02/01/2019 8:05:54 PM Referred By: Nati Gregory Confirmed By:Nati Gregory
== END 2019-02-01 15:00 | disposition home or self-care (01) ==
DX: R47.81 Slurred speech (principal); F20.89 Other schizophrenia